=== PATIENT | male | born 1960 | race American Indian/Alaskan Native ===

== ENCOUNTER 2016-12-17 09:50 | Inpatient (IN) | payer OTHER ==
[2016-12-17 10:22] LABS: Basophils % (Auto) 0.6 % (0.0-1.8); Eosinophils % (Auto) 1.2 % (0.0-4.3); Hematocrit 37.9 % (35.5-45.6); Hemoglobin 12.1 gm/dl (11.8-15.2); Mean Corpuscular HGB Conc 32 % (32-34); Mean Corpuscular Hemoglobin 30 pg (28-32); Mean Corpuscular Volume 95 fl (84-94); Platelet Count 203 K/mm3 (140-440); Red Blood Count 3.99 M/mm3 (3.65-5.03); Red Cell Distribution Width 17.8 % (13.2-15.2)
[2016-12-17 10:32] LABS: Calcium 9.1 mg/dL (8.4-10.2); Chloride 105.2 mmol/L (98-107); Partial Thromboplastin Time 23.5 Sec. (24.2-36.6)
[2016-12-17] MEDS ORDERED: NACL 0.9% 500 ML 500 ML IV ONE (11:59)
[2016-12-17] MEDS ORDERED: LOVENOX SUB-Q ONE (11:59)
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
[2016-12-17] MEDS ORDERED: NACL ONE (12:09)
--- NOTE | 2016-12-17 14:24 | Cat Scan Report ---
FINAL REPORT PROCEDURE: CT ANGIO CHEST TECHNIQUE: Computerized axial tomographic angiography of the chest and pulmonary arteries was performed after the IV injection of iodinated nonionic contrast. The image data was postprocessed using maximum intensity projection (MIP) and 2-dimensional multiplanar reformatted (MPR) techniques. The examination is specifically tailored to the evaluation of the pulmonary arteries per clinical request. HISTORY: Short of breath 786.09, chest pain 786.50, dyspnea COMPARISON: No prior studies are available for comparison. FINDINGS: Heart and pericardium: Normal. Thoracic aorta: Normal. Pulmonary vasculature: There is a filling defect along the anterior wall of the right pulmonary artery, compatible with a pulmonary embolus, of uncertain chronicity. This may be a chronic finding. Compare to prior studies. Linear filling defects are seen within right lower lobe branches also, which are of uncertain chronicity. Lymph nodes: No enlarged thoracic lymph nodes. Lungs: Minimal dependent change in the right lung base. Pleural space: No effusion, thickening, or pneumothorax. Musculoskeletal structures: Thoracic spine degenerative disc changes. Upper abdominal structures: See separate CT report. IMPRESSION: Filling defect along the anterior wall of the right pulmonary artery is compatible with a pulmonary embolus, however this may be chronic. Compare to prior studies.
--- NOTE | 2016-12-17 14:36 | Cat Scan Report ---
FINAL REPORT PROCEDURE: CT ABDOMEN PELVIS W CON TECHNIQUE: Computerized axial tomography of the abdomen and pelvis was performed after the IV injection of iodinated nonionic contrast. HISTORY: dyspnea, leg swelling, assess for iliac vein/IVC COMPARISON: No prior studies are available for comparison. FINDINGS: Visualized lower thorax: See separate CT report. Liver: Normal size and attenuation. Spleen: Normal size and attenuation. Gallbladder and biliary system: Normal. Pancreas: Normal. Adrenals: Normal. Kidneys: 7 millimeter low-density lesion in the anterior right kidney is compatible with a cyst. GI tract: No bowel obstruction or inflammation is seen. There is a right lower abdominal ostomy. Lymph nodes and mesentery: Normal. Vasculature: IVC filter is present. Lumen of the inferior vena cava and iliac veins is not diagnostically evaluated. The left common and external iliac veins are increased in caliber compared to the right side. This may be incidental. Cannot fully exclude a thrombus, although this is not diagnostic for thrombus. Bladder: Decompressed. Reproductive organs: Mildly prominent left inguinal lymph nodes. Peritoneum: No free fluid. In the anterior abdomen to the right of midline, there is a small 2 centimeter focus of stranding in the fat, which may be related to scarring. Cannot exclude omental infarct. Musculoskeletal structures: No significant abnormality. Other: Bilateral small fat containing inguinal hernias. IMPRESSION: Nondiagnostic evaluation of the lumen of the inferior vena cava and iliac veins. The left common and external iliac veins are increased in caliber compared to the right side. Although this can be seen with thrombus, this is not a diagnostic evaluation. Correlate with ultrasound findings. Finding was discussed with Dr. Florence by telephone at 1:31 p.m. central standard time on 12/17/2016.
[2016-12-17] MEDS ORDERED: ULTRAM PO PRN (22:04)
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
[2016-12-17] MEDS ORDERED: ZOFRAN IV PRN (22:06)
[2016-12-17] MEDS ORDERED: DULCOLAX PR PRN (22:06)
[2016-12-17] MEDS ORDERED: MILK OF MAGNESIA PO PRN (22:06)
[2016-12-17] MEDS ORDERED: TYLENOL PO PRN (22:06)
[2016-12-17] MEDS ORDERED: D5NS 1,000 ML IV SCH (23:00)
[2016-12-17] MEDS ORDERED: LOVENOX SUB-Q SCH (23:00)
[2016-12-17] MEDS: PERCOCET 5/325 PO PRN (23:27)
[2016-12-18] MEDS: HEPARIN/ 0.45% NACL-25,000 UNIT/500 ML 25,000 UNIT/500 ML BAG IV SCH ×2 (03:39→22:34)
[2016-12-18] MEDS: DILAUDID IV PRN ×2 (04:06→08:15)
[2016-12-18 04:21] LABS: Basophils % (Auto) 1.1 % (0.0-1.8); Eosinophils % (Auto) 3.2 % (0.0-4.3); Hematocrit 39.3 % (35.5-45.6); Hemoglobin 12.9 gm/dl (11.8-15.2); Mean Corpuscular HGB Conc 33 % (32-34); Mean Corpuscular Hemoglobin 31 pg (28-32); Mean Corpuscular Volume 95 fl (84-94); Platelet Count 193 K/mm3 (140-440); Red Blood Count 4.15 M/mm3 (3.65-5.03); Red Cell Distribution Width 17.6 % (13.2-15.2); White Blood Count 4.7 K/mm3 (4.5-11.0)
[2016-12-18 04:34] LABS: INR 1.02 (0.87-1.13)
[2016-12-18 04:39] LABS: Albumin 3.5 g/dL (3.9-5); Albumin/Globulin Ratio 0.8 %; Bilirubin,Total 0.3 mg/dL (0.1-1.2); Calcium 8.9 mg/dL (8.4-10.2); Potassium 4.4 mmol/L (3.6-5.0); Total Protein 8.1 g/dL (6.3-8.2)
--- NOTE | 2016-12-18 07:26 | Vascular Lab Report ---
LOWER EXTREMITY VENOUS DUPLEX: REASON FOR EXAM: History of DVT. COMMENTS ON THE RIGHT: Nonocclusive deep venous thrombus noted in the peroneal, posterior tibial veins and extending into and through the popliteal, femoral and common femoral veins. The remaining veins visualized are freely compressible without evidence of internal echogenicity. Spontaneous and phasic flow is absent proximally. COMMENTS ON THE LEFT: Occlusive deep venous thrombosis noted in the popliteal, femoral common femoral veins. Partially occlusive DVT is noted in the peroneal and posterior tibial veins superficial phlebitis is noted in the greater saphenous. IMPRESSION: Bilateral deep venous thrombosis. Left superficial thrombophlebitis.
[2016-12-18] MEDS: LASIX PO SCH (09:45)
[2016-12-18] MEDS: PEPCID PO SCH ×2 (09:45→21:05)
[2016-12-18] MEDS: NORVASC PO SCH (09:45)
[2016-12-18] MEDS: COREG PO SCH ×3 (09:45→21:06)
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
[2016-12-18] MEDS ORDERED: NACL 0.9% 1000 ML 1,000 ML IV SCH (12:00)
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
[2016-12-18] MEDS ORDERED: COUMADIN PO SCH (17:00)
--- NOTE | 2016-12-18 18:10 | Consultation ---
History of Present Illness - HPI Consult date: 12/18/16 Consult reason: other (left arm swelling) History of present illness: 56 y/o male with c/o left forearm pain and swelling after IV placement...currently states swelling improving since admission Past History Past Medical History: CAD, DVT, heart failure, hypertension, pulmonary embolism , other (reportedly a Lupus anticoagulant hypercoagulable state) Past Surgical History: Other (exploratory laparotomy with colostomy, IVC filter insertion) Social history: other (he recently lost his job and medical insurance due to his prolonged hospitalization) Family history: no significant family history Medications and Allergies Allergies Allergy/AdvReac Type Severity Reaction Status Date / Time lisinopril Allergy Severe Unknown Verified 07/26/15 14:21 Home Medications Medication Instructions Recorded Confirmed Last Taken Type Furosemide [Lasix] 20 mg PO DAILY 10/29/13 10/10/14 10/09/14 History Carvedilol 12.5 mg PO BID 01/17/14 10/10/14 10/09/14 History traMADol [Ultram 50 MG tab] 50 mg PO Q6HR PRN #20 tablet 10/10/14 Unknown Rx oxyCODONE /ACETAMINOPHEN [Percocet 1 tab PO Q6HR PRN #20 tablet 12/02/14 Unknown Rx 5/325 mg] Apixaban [Eliquis] 5 mg PO Q12HR #60 tablet 07/28/15 Unknown Rx amLODIPine [Norvasc] 10 mg PO DAILY #15 tablet 07/28/15 Unknown Rx Active Meds: Active Medications Acetaminophen (Tylenol) 650 mg PO Q4H PRN PRN Reason: Pain MILD(1-3)/Fever >100.5/CARBONE Amlodipine Besylate (Norvasc) 10 mg PO DAILY [facility] Last Admin: 12/18/16 09:45 Dose: 10 mg Bisacodyl (Dulcolax) 10 mg [place] QDAY PRN PRN Reason: Constipation unrelieved by MOM Carvedilol (Coreg) 12.5 mg PO BID [facility] Last Admin: 12/18/16 09:45 Dose: 12.5 mg Famotidine (Pepcid) 20 mg PO BID [facility] Last Admin: 12/18/16 09:45 Dose: 20 mg Furosemide (Lasix) 20 mg PO DAILY [facility] Last Admin: 12/18/16 09:45 Dose: 20 mg Hydromorphone HCl (Dilaudid) 1 mg IV Q3H PRN PRN Reason: Pain , Severe (7-10) Last Admin: 12/18/16 08:15 Dose: 1 mg Heparin Sodium/Sodium Chloride (Heparin/ 0.45% Nacl-25,000 Unit/500 Ml) 25,000 unit in 500 mls @ 30 mls/hr IV TITR [facility]AL[facility]; 1,500 UNITS/HR PRN Reason: Protocol Last Titration: 12/18/16 11:15 Dose: 1,400 units/hr, 28 mls/hr Sodium Chloride (Nacl 0.9% 1000 Ml) 1,000 mls @ 100 mls/hr IV DIRECT [facility] Magnesium Hydroxide (Milk Of Magnesia) 30 ml PO Q4H PRN PRN Reason: Constipation Ondansetron HCl (Zofran) 4 mg IV Q8H PRN PRN Reason: Nausea And Vomiting Oxycodone/Acetaminophen (Percocet 5/325) 1 tab PO Q6H PRN PRN Reason: Pain Last Admin: 12/17/16 23:27 Dose: 1 tab Tramadol HCl (Ultram) 50 mg PO Q6H PRN PRN Reason: Pain Warfarin Sodium (Coumadin Pharmacy To Dose) 1 each PO PKCONSULT [facility] PRN Reason: Protocol Warfarin Sodium (Coumadin) 7.5 mg PO DAILY@1700 [facility] Physical Examination - Physical exam Narrative exam: left upper extremity - moderate swelling proximal to mid-third lt arm, no erythema noted good active RoM at elbow,wrist,and digits, capillary refill brisk Assessment and Plan Assessment - IV infiltration left arm with secondary cellulitis recommendation - observation only at this point
[2016-12-18] MEDS: PERCOCET 5/325 PO PRN (21:05)
[2016-12-19] MEDS: PERCOCET 5/325 PO PRN ×2 (02:45→23:13)
[2016-12-19 04:46] LABS: Hematocrit 36.6 % (35.5-45.6); Mean Corpuscular HGB Conc 33 % (32-34); Mean Corpuscular Hemoglobin 31 pg (28-32); Mean Corpuscular Volume 94 fl (84-94); Platelet Count 216 K/mm3 (140-440); Red Blood Count 3.89 M/mm3 (3.65-5.03); Red Cell Distribution Width 17.4 % (13.2-15.2); White Blood Count 5.6 K/mm3 (4.5-11.0)
[2016-12-19 04:56] LABS: INR 0.98 (0.87-1.13)
[2016-12-19 05:06] LABS: Calcium 8.9 mg/dL (8.4-10.2)
[2016-12-19 05:07] LABS: Chloride 100.5 mmol/L (98-107); Potassium 5.2 mmol/L (3.6-5.0)
[2016-12-19] MEDS: PEPCID PO SCH ×2 (09:14→23:14)
[2016-12-19] MEDS: LASIX PO SCH (10:00)
[2016-12-19] MEDS: NORVASC PO SCH (10:13)
[2016-12-19] MEDS: COREG PO SCH ×3 (10:13→23:14)
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
[2016-12-19] MEDS: DILAUDID IV PRN (16:21)
[2016-12-19] MEDS: HEPARIN/ 0.45% NACL-25,000 UNIT/500 ML 25,000 UNIT/500 ML BAG IV SCH (16:21)
[2016-12-19] MEDS: COUMADIN PO SCH (17:30)
[2016-12-20] MEDS: LASIX PO SCH (09:57)
[2016-12-20] MEDS: PEPCID PO SCH ×2 (09:57→21:21)
[2016-12-20] MEDS: COREG PO SCH ×2 (09:58→21:22)
[2016-12-20] MEDS: HEPARIN/ 0.45% NACL-25,000 UNIT/500 ML 25,000 UNIT/500 ML BAG IV SCH (11:38)
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
[2016-12-20] MEDS: PERCOCET 5/325 PO PRN (14:47)
[2016-12-20] MEDS: COUMADIN PO SCH (18:36)
[2016-12-20] MEDS: DILAUDID IV PRN (22:33)
[2016-12-21 05:25] LABS: Mean Corpuscular HGB Conc 33 % (32-34); Mean Corpuscular Hemoglobin 32 pg (28-32); Mean Corpuscular Volume 95 fl (84-94); Platelet Count 233 K/mm3 (140-440); Red Blood Count 3.49 M/mm3 (3.65-5.03); Red Cell Distribution Width 17.5 % (13.2-15.2); White Blood Count 4.6 K/mm3 (4.5-11.0)
[2016-12-21 05:37] LABS: INR 1.17 (0.87-1.13)
[2016-12-21 05:45] LABS: Calcium 8.3 mg/dL (8.4-10.2); Chloride 103.5 mmol/L (98-107); Potassium 4.4 mmol/L (3.6-5.0)
[2016-12-21] MEDS: HEPARIN/ 0.45% NACL-25,000 UNIT/500 ML 25,000 UNIT/500 ML BAG IV SCH (07:22)
[2016-12-21] MEDS: LASIX PO SCH (11:12)
[2016-12-21] MEDS: PEPCID PO SCH ×2 (11:12→21:55)
[2016-12-21] MEDS: COREG PO SCH ×2 (11:16→22:00)
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
[2016-12-21] MEDS: COUMADIN PO SCH (18:16)
[2016-12-21] MEDS: DILAUDID IV PRN (21:56)
[2016-12-22] MEDS: HEPARIN/ 0.45% NACL-25,000 UNIT/500 ML 25,000 UNIT/500 ML BAG IV SCH ×2 (02:05→18:08)
[2016-12-22 06:24] LABS: INR 1.22 (0.87-1.13)
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
[2016-12-22] MEDS: PEPCID PO SCH ×2 (11:11→21:55)
[2016-12-22] MEDS: LASIX PO SCH (11:12)
[2016-12-22] MEDS: COREG PO SCH ×2 (11:12→21:54)
[2016-12-22] MEDS: COUMADIN PO SCH (17:55)
[2016-12-22] MEDS: DILAUDID IV PRN (18:04)
[2016-12-23] MEDS: DILAUDID IV PRN ×2 (00:09→17:32)
[2016-12-23 05:50] LABS: INR 1.4 (0.87-1.13)
[2016-12-23] MEDS: LASIX PO SCH (09:32)
[2016-12-23] MEDS: PEPCID PO SCH ×2 (09:32→23:51)
[2016-12-23] MEDS: COREG PO SCH (09:32)
[2016-12-23] MEDS: HEPARIN/ 0.45% NACL-25,000 UNIT/500 ML 25,000 UNIT/500 ML BAG IV SCH (09:33)
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
[2016-12-23] MEDS: COUMADIN PO SCH (17:05)
[2016-12-24] MEDS: DILAUDID IV PRN ×4 (00:54→23:00)
[2016-12-24] MEDS: HEPARIN/ 0.45% NACL-25,000 UNIT/500 ML 25,000 UNIT/500 ML BAG IV SCH ×2 (03:01→21:27)
[2016-12-24 06:37] LABS: INR 1.6 (0.87-1.13)
[2016-12-24] MEDS: PEPCID PO SCH ×2 (09:54→21:25)
[2016-12-24] MEDS: LASIX PO SCH (09:55)
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
[2016-12-24] MEDS: COUMADIN PO SCH (17:48)
[2016-12-25 05:40] LABS: INR 1.64 (0.87-1.13)
[2016-12-25 05:47] LABS: Calcium 9.1 mg/dL (8.4-10.2); Chloride 102.1 mmol/L (98-107); Potassium 4.7 mmol/L (3.6-5.0)
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
[2016-12-25] MEDS: PEPCID PO SCH ×2 (11:35→22:41)
[2016-12-25] MEDS: LASIX PO SCH (11:35)
[2016-12-25] MEDS: HEPARIN/ 0.45% NACL-25,000 UNIT/500 ML 25,000 UNIT/500 ML BAG IV SCH (15:12)
[2016-12-25] MEDS: DILAUDID IV PRN ×2 (16:41→22:34)
[2016-12-25] MEDS ORDERED: COUMADIN PO SCH ×2 (17:00)
[2016-12-25] MEDS: COUMADIN PO SCH (17:32)
[2016-12-26 06:15] LABS: Hematocrit 35.4 % (35.5-45.6); Hemoglobin 11.2 gm/dl (11.8-15.2); Mean Corpuscular HGB Conc 32 % (32-34); Mean Corpuscular Hemoglobin 31 pg (28-32); Mean Corpuscular Volume 96 fl (84-94); Platelet Count 242 K/mm3 (140-440); Red Blood Count 3.69 M/mm3 (3.65-5.03); Red Cell Distribution Width 17.5 % (13.2-15.2); White Blood Count 5.7 K/mm3 (4.5-11.0)
[2016-12-26 06:19] LABS: INR 1.66 (0.87-1.13)
[2016-12-26 07:20] LABS: Chloride 102.8 mmol/L (98-107); Potassium 4.6 mmol/L (3.6-5.0)
[2016-12-26] MEDS: HEPARIN/ 0.45% NACL-25,000 UNIT/500 ML 25,000 UNIT/500 ML BAG IV SCH (08:16)
[2016-12-26] MEDS: PEPCID PO SCH (10:37)
[2016-12-26] MEDS: LASIX PO SCH (10:37)
[2016-12-26] MEDS: DILAUDID IV PRN (11:35)
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
[2016-12-26] MEDS ORDERED: LOVENOX SUB-Q SCH ×3 (13:00→14:00)
[2016-12-26 14:49] VITALS: BP 125/77
[2016-12-26] MEDS: PERCOCET 5/325 PO PRN (16:27)
[2016-12-26] MEDS: COUMADIN PO SCH (16:27)
== END 2016-12-26 17:20 | disposition home or self-care (01) | DRG 299 ==
LOC: ED 09:50 → 3A 22:06
PROVIDERS: ADMIT Internal Medicine; ATTEND Internal Medicine
DX: I82.402 Acute embolism and thrombosis of unspecified deep veins of left lower extremity (principal); N17.0 Acute kidney failure with tubular necrosis; D68.62 Lupus anticoagulant syndrome; L03.114 Cellulitis of left upper limb; I13.0 Hypertensive heart and chronic kidney disease with heart failure and stage 1 through stage 4 chronic kidney disease, or unspecified chronic kidney disease; I27.82 Chronic pulmonary embolism; I82.502 Chronic embolism and thrombosis of unspecified deep veins of left lower extremity; Z88.8 Allergy status to other drugs, medicaments and biological substances; I50.9 Heart failure, unspecified; I25.10 Atherosclerotic heart disease of native coronary artery without angina pectoris; I95.9 Hypotension, unspecified; N18.3 Chronic kidney disease, stage 3 (moderate)
CPT/HCPCS: 36415; 71275; 74177; 80048; 80053; 82550; 82962; 85025; 85027; 85379; 85520; 85610; 85730; 93970; 96372; J1170; J1644; J1650; J7040; J7042; Q9967

== ENCOUNTER 2017-08-09 18:39 | Inpatient (IN) | payer SELFPAY ==
[2017-08-09 19:46] LABS: Basophils % (Auto) 0.7 % (0.0-1.8); Eosinophils # (Auto) 0.1 K/mm3 (0.0-0.4); Eosinophils % (Auto) 1.3 % (0.0-4.3); Hematocrit 45.5 % (35.5-45.6); Hemoglobin 14.4 gm/dl (11.8-15.2); Lymphocytes # (Auto) 1.4 K/mm3 (1.2-5.4); Lymphocytes % (Auto) 26.5 % (13.4-35.0); Mean Corpuscular HGB Conc 32 % (32-34); Mean Corpuscular Hemoglobin 31 pg (28-32); Mean Corpuscular Volume 96 fl (84-94); Monocytes # (Auto) 0.5 K/mm3 (0.0-0.8); Monocytes % (Auto) 9.6 % (0.0-7.3); Platelet Count 145 K/mm3 (140-440); Red Blood Count 4.72 M/mm3 (3.65-5.03)
[2017-08-09 19:55] LABS: INR 0.99 (0.87-1.13)
[2017-08-09 19:56] LABS: Partial Thromboplastin Time 23.5 Sec. (24.2-36.6)
[2017-08-09] MEDS ORDERED: ELIQUIS PO ONE (22:47)
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
[2017-08-10] MEDS ORDERED: ZOFRAN IV PRN (05:09)
[2017-08-10] MEDS ORDERED: MORPHINE IV PRN (05:09)
[2017-08-10] MEDS ORDERED: TYLENOL PO PRN (05:09)
[2017-08-10] MEDS ORDERED: SODIUM CHLORIDE FLUSH SYRINGE 10 ML IV PRN (05:09)
--- NOTE | 2017-08-10 05:12 | History and Physical Report ---
History of Present Illness Date of examination: 08/10/17 History of present illness: 56-year-old man with a history of hypertension, CHF, PE, DVT, clotting disorder causing emergency room complaining of pain in his right thigh 5 days. Stated the pain is sharp, worse with activity, constant, intensity 7/10. Is complaining of shortness of breath for over 1 week. The patient stated that he started off on xarelto, then to warfarin secondary to financial constraint. He stopped taking the warfarin 3 weeks ago due to worsening financial problems Review of systems Constitutional: no weight loss, chills Ears, eyes, nose, mouth and throat: no nasal congestion, no nasal discharge, no sinus pressure, no vision change, no red eye. Neck: No neck pain or rigidity. Cardiovascular: no chest pain, palpitations Respiratory: No cough, Gastrointestinal: no abdominal pain, hematochezia Genitourinary : no dysuria, frequency , no hematuria Musculoskeletal: no joint swelling or muscle ache Integumentary: no rash, no pruritis Neurological: no parathesias, no numbness, no focal weakness Endocrine: no cold or heat intolerance, no polyuria or polydipsia Hematologic/Lymphatic: no easy bruising, no easy bleeding, no gland swelling Allergic/Immunologic: no urticaria, no angioedema. PAST MEDICAL HISTORY: hypertension, CHF, PE, DVT, clotting disorder PAST SURGICAL HISTORY: Abdominal surgery, colostomy, IVC filter SOCIAL HISTORY: Alcohol use, no tobacco or drugs FAMILY HISTORY: Hypertension Medications and Allergies Allergies Allergy/AdvReac Type Severity Reaction Status Date / Time lisinopril Allergy Severe Unknown Verified 07/26/15 14:21 Home Medications Medication Instructions Recorded Confirmed Last Taken Type amLODIPine [Norvasc] 10 mg PO DAILY 08/10/17 08/10/17 Unknown History HYDROcodone/APAP 5-325 [[place] 1 each PO Q6H PRN #12 tablet 08/18/17 Unknown Rx 5-325 mg TAB] Warfarin [Coumadin] 10 mg PO DAILY@1700 #30 tablet 08/18/17 Unknown Rx Exam - Physical Exam Narrative exam: Gen. appearance: Patient lying in bed, no apparent distress HEENT: Normocephalic, atraumatic, pupils equally round and reactive to light, extraocular movement intact, and no sclericterus,. No JVD or thyromegaly or nodule,neck supple, no carotid bruit ,mucous membranes moist, no exudate or erythema Heart: S1, S2, regular rate and rhythm Lungs: Clear to auscultation bilaterally, breathing comfortable Abdomen: Positive bowel sounds, nontender, nondistended, no organomegaly Extremity: + edema, + ulcer, no cyanosis, clubbing Skin: No rash, nodules, warm, dry Neuro: Oriented 3, cranial nerves II-12 intact, speech is fluent, motor and sensory intact - Constitutional Vitals: Temp Pulse Resp BP Pulse Ox 98.2 F 73 22 117/78 89 08/09/17 22:51 08/10/17 02:00 08/10/17 02:00 08/10/17 02:00 08/10/17 02:00 Results - Labs CBC & Chem 7: 08/18/17 04:41 08/18/17 04:41 Labs: Abnormal lab results 08/09/17 08/09/17 08/09/17 Range/Units 19:09 19:09 19:09 MCV 96 H (84-94) fl RDW 17.0 H (13.2-15.2) % [place] % (Auto) 9.6 H (0.0-7.3) % APTT 23.5 L (24.2-36.6) Sec. D-Dimer > 35760 H (0-234) ng/mlDDU Sodium 135 L (137-145) mmol/L Creatinine 1.8 H (0.8-1.5) mg/dL - Imaging and Cardiology EKG: image reviewed Chest x-ray: image reviewed Assessment and Plan VQ shows high probability for PE Assessment Acute on chronic pulmonary emboli Right leg pain, rule out DVT Lower extremity ulcer Hypertension CHF, stable Plan Admit to medicine Start eliquis, check to see if patient is able to get discount for medicine If not, restart Coumadin Consult wound care, check Doppler of lower extremity DVT prophylaxis
[2017-08-10 05:32] LABS: Basophils % (Auto) 0.6 % (0.0-1.8); Eosinophils # (Auto) 0.1 K/mm3 (0.0-0.4); Eosinophils % (Auto) 2.1 % (0.0-4.3); Hemoglobin 14.1 gm/dl (11.8-15.2); Lymphocytes # (Auto) 1.6 K/mm3 (1.2-5.4); Lymphocytes % (Auto) 34.6 % (13.4-35.0); Mean Corpuscular HGB Conc 34 % (32-34); Mean Corpuscular Hemoglobin 31 pg (28-32); Mean Corpuscular Volume 93 fl (84-94); Monocytes # (Auto) 0.5 K/mm3 (0.0-0.8); Monocytes % (Auto) 11.2 % (0.0-7.3); Red Cell Distribution Width 17.2 % (13.2-15.2)
[2017-08-10 05:37] LABS: Platelet Count 142 K/mm3 (140-440)
[2017-08-10 05:40] LABS: Calcium 8.5 mg/dL (8.4-10.2); INR 1.05 (0.87-1.13)
[2017-08-10 05:41] LABS: Partial Thromboplastin Time 25.8 Sec. (24.2-36.6)
[2017-08-10] MEDS ORDERED: ELIQUIS PO SCH (10:00)
[2017-08-10] MEDS: SODIUM CHLORIDE FLUSH SYRINGE 10 ML IV SCH ×2 (10:14→23:29)
--- NOTE | 2017-08-10 11:22 | Progress Note ---
Assessment and Plan Assessment and plan: Acute on chronic pulmonary emboli. Dr. Hoskins reports patient with VQ revealing high probability for PE. However, no report available in the chart. We will consult vascular surgery. Patient was given eliquis in ER. We will start heparin IV tomorrow and coumadin Bilateral LE DVT. Cont anticoagulation Hypercoagulable. Patient reports hypercoagulable state but cannot give me the exact determination. We will attempt to obtain old records from [facility]. Hematology consultation. Hypertension. Resume antihypertensive medications. CHF. Stable. History Interval history: No new issues since admission Hospitalist Physical - Constitutional Vitals: Temp Pulse Resp BP Pulse Ox 97.9 F 78 16 128/80 100 08/10/17 09:30 08/10/17 09:30 08/10/17 09:30 08/10/17 09:30 08/10/17 09:30 General appearance: Present: no acute distress, well-nourished - EENT Eyes: Present: PERRL, EOM intact ENT: hearing intact, clear oral mucosa, dentition normal - Neck Neck: Present: supple, normal ROM - Respiratory Respiratory effort: normal Respiratory: bilateral: CTA - Cardiovascular Rhythm: regular Heart Sounds: Present: S1 & S2. Absent: gallop, rub - Extremities Extremities: no ischemia, No edema, Full ROM - Abdominal General gastrointestinal: soft, non-tender, non-distended, normal bowel sounds - Integumentary Integumentary: Present: clear, warm, dry - Neurologic Neurologic: CNII-XII intact, moves all extremities Results - Labs CBC & Chem 7: 08/10/17 05:14 08/10/17 05:14 Labs: Laboratory Last Values WBC 4.7 K/mm3 (4.5-11.0) 08/10/17 05:14 RBC 4.50 M/mm3 (3.65-5.03) 08/10/17 05:14 Hgb 14.1 gm/dl (11.8-15.2) 08/10/17 05:14 Hct 42.0 % (35.5-45.6) 08/10/17 05:14 MCV 93 fl (84-94) 08/10/17 05:14 MCH 31 pg (28-32) 08/10/17 05:14 MCHC 34 % (32-34) 08/10/17 05:14 RDW 17.2 % (13.2-15.2) H 08/10/17 05:14 Plt Count 142 K/mm3 (140-440) 08/10/17 05:14 Lymph % (Auto) 34.6 % (13.4-35.0) 08/10/17 05:14 [place] % (Auto) 11.2 % (0.0-7.3) H 08/10/17 05:14 Eos % (Auto) 2.1 % (0.0-4.3) 08/10/17 05:14 Baso % (Auto) 0.6 % (0.0-1.8) 08/10/17 05:14 Lymph # 1.6 K/mm3 (1.2-5.4) 08/10/17 05:14 [place] # 0.5 K/mm3 (0.0-0.8) 08/10/17 05:14 Eos # 0.1 K/mm3 (0.0-0.4) 08/10/17 05:14 Baso # 0.0 K/mm3 (0.0-0.1) 08/10/17 05:14 Seg Neutrophils % 51.5 % (40.0-70.0) 08/10/17 05:14 Seg Neutrophils # 2.4 K/mm3 (1.8-7.7) 08/10/17 05:14 PT 14.3 Sec. (12.2-14.9) 08/10/17 05:14 INR 1.05 (0.87-1.13) 08/10/17 05:14 APTT 25.8 Sec. (24.2-36.6) 08/10/17 05:14 D-Dimer > 29510 ng/mlDDU (0-234) H 08/09/17 19:09 Sodium 132 mmol/L (137-145) L 08/10/17 05:14 Potassium 5.5 mmol/L (3.6-5.0) H D 08/10/17 05:14 Chloride 102.9 mmol/L (98-107) 08/10/17 05:14 Carbon Dioxide 17 mmol/L (22-30) L 08/10/17 05:14 Anion Gap 18 mmol/L 08/10/17 05:14 BUN 13 mg/dL (9-20) 08/10/17 05:14 Creatinine 1.6 mg/dL (0.8-1.5) H 08/10/17 05:14 Estimated GFR 55 ml/min 08/10/17 05:14 BUN/Creatinine Ratio 8 % 08/10/17 05:14 Glucose 103 mg/dL (75-100) H 08/10/17 05:14 Calcium 8.5 mg/dL (8.4-10.2) 08/10/17 05:14 Troponin T < 0.010 ng/mL (0.00-0.029) 08/10/17 05:14
[2017-08-10 12:32] LABS: Hematocrit 42.9 % (35.5-45.6); Hemoglobin 14.3 gm/dl (11.8-15.2)
[2017-08-10 12:42] LABS: INR 1.04 (0.87-1.13)
[2017-08-10 12:43] LABS: Partial Thromboplastin Time 26.2 Sec. (24.2-36.6)
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
[2017-08-10] MEDS: COUMADIN PO SCH (18:51)
[2017-08-11 08:10] LABS: Basophils % (Auto) 0.7 % (0.0-1.8); Eosinophils # (Auto) 0.1 K/mm3 (0.0-0.4); Eosinophils % (Auto) 2.2 % (0.0-4.3); Hematocrit 42.7 % (35.5-45.6); Hemoglobin 13.9 gm/dl (11.8-15.2); Lymphocytes # (Auto) 1.6 K/mm3 (1.2-5.4); Lymphocytes % (Auto) 31.8 % (13.4-35.0); Mean Corpuscular HGB Conc 33 % (32-34); Mean Corpuscular Hemoglobin 31 pg (28-32); Mean Corpuscular Volume 95 fl (84-94); Monocytes # (Auto) 0.6 K/mm3 (0.0-0.8); Monocytes % (Auto) 12.1 % (0.0-7.3); Platelet Count 151 K/mm3 (140-440); Red Blood Count 4.48 M/mm3 (3.65-5.03); Red Cell Distribution Width 17.2 % (13.2-15.2)
[2017-08-11 08:28] LABS: Calcium 8.7 mg/dL (8.4-10.2)
--- NOTE | 2017-08-11 12:01 | Progress Note ---
Assessment and Plan Assessment and plan: Acute on chronic pulmonary emboli. Bilateral LE DVT. Cont anticoagulation. Patient currently with IV heparin and Coumadin. Hypercoagulable. Patient reports hypercoagulable state but cannot give me the exact determination. We will attempt to obtain old records from [facility]. Hematology consultation. Hypertension. Resume antihypertensive medications. CHF. Stable. Chronic kidney disease III. Patient is at baseline creatinine. History Interval history: No new issues since admission Hospitalist Physical - Constitutional Vitals: Temp Pulse Resp BP Pulse Ox 97.4 F L 64 18 117/82 94 08/11/17 08:17 08/11/17 08:17 08/11/17 08:17 08/11/17 08:17 08/11/17 08:17 General appearance: Present: no acute distress - EENT Eyes: Present: PERRL, EOM intact ENT: hearing intact, clear oral mucosa, dentition normal - Neck Neck: Present: supple, normal ROM - Respiratory Respiratory effort: normal Respiratory: bilateral: CTA - Cardiovascular Rhythm: regular Heart Sounds: Present: S1 & S2. Absent: gallop, rub - Extremities Extremities: no ischemia, No edema, Full ROM - Abdominal General gastrointestinal: soft, non-tender, non-distended, normal bowel sounds - Integumentary Integumentary: Present: clear, warm, dry - Neurologic Neurologic: CNII-XII intact, moves all extremities Results - Labs CBC & Chem 7: 08/11/17 06:11 08/11/17 06:11 Labs: Laboratory Last Values WBC 4.9 K/mm3 (4.5-11.0) 08/11/17 06:11 RBC 4.48 M/mm3 (3.65-5.03) 08/11/17 06:11 Hgb 13.9 gm/dl (11.8-15.2) 08/11/17 06:11 Hct 42.7 % (35.5-45.6) 08/11/17 06:11 MCV 95 fl (84-94) H 08/11/17 06:11 MCH 31 pg (28-32) 08/11/17 06:11 MCHC 33 % (32-34) 08/11/17 06:11 RDW 17.2 % (13.2-15.2) H 08/11/17 06:11 Plt Count 151 K/mm3 (140-440) 08/11/17 06:11 Lymph % (Auto) 31.8 % (13.4-35.0) 08/11/17 06:11 [place] % (Auto) 12.1 % (0.0-7.3) H 08/11/17 06:11 Eos % (Auto) 2.2 % (0.0-4.3) 08/11/17 06:11 Baso % (Auto) 0.7 % (0.0-1.8) 08/11/17 06:11 Lymph # 1.6 K/mm3 (1.2-5.4) 08/11/17 06:11 [place] # 0.6 K/mm3 (0.0-0.8) 08/11/17 06:11 Eos # 0.1 K/mm3 (0.0-0.4) 08/11/17 06:11 Baso # 0.0 K/mm3 (0.0-0.1) 08/11/17 06:11 Seg Neutrophils % 53.2 % (40.0-70.0) 08/11/17 06:11 Seg Neutrophils # 2.6 K/mm3 (1.8-7.7) 08/11/17 06:11 PT 14.1 Sec. (12.2-14.9) 08/10/17 11:55 INR 1.04 (0.87-1.13) 08/10/17 11:55 APTT 26.2 Sec. (24.2-36.6) 08/10/17 11:55 D-Dimer > 12641 ng/mlDDU (0-234) H 08/09/17 19:09 Sodium 135 mmol/L (137-145) L 08/11/17 06:11 Potassium 4.1 mmol/L (3.6-5.0) D 08/11/17 06:11 Chloride 96.0 mmol/L (98-107) L 08/11/17 06:11 Carbon Dioxide 23 mmol/L (22-30) 08/11/17 06:11 Anion Gap 20 mmol/L 08/11/17 06:11 BUN 15 mg/dL (9-20) 08/11/17 06:11 Creatinine 1.6 mg/dL (0.8-1.5) H 08/11/17 06:11 Estimated GFR 55 ml/min 08/11/17 06:11 BUN/Creatinine Ratio 9 % 08/11/17 06:11 Glucose 88 mg/dL (75-100) 08/11/17 06:11 Calcium 8.7 mg/dL (8.4-10.2) 08/11/17 06:11 Troponin T < 0.010 ng/mL (0.00-0.029) 08/10/17 05:14
[2017-08-11 16:29] LABS: Hematocrit 45.5 % (35.5-45.6); Hemoglobin 14.9 gm/dl (11.8-15.2)
[2017-08-11 16:41] LABS: INR 0.95 (0.87-1.13)
[2017-08-11 16:42] LABS: Partial Thromboplastin Time 24.5 Sec. (24.2-36.6)
[2017-08-11] MEDS: SODIUM CHLORIDE FLUSH SYRINGE 10 ML IV SCH (18:30)
[2017-08-11] MEDS: COUMADIN PO SCH (19:01)
[2017-08-11] MEDS: HEPARIN/ 0.45% NACL-25,000 UNIT/500 ML 25,000 UNIT/500 ML BAG IV SCH (19:11)
[2017-08-12] MEDS: SODIUM CHLORIDE FLUSH SYRINGE 10 ML IV SCH ×3 (01:17→22:46)
[2017-08-12] MEDS: HEPARIN/ 0.45% NACL-25,000 UNIT/500 ML 25,000 UNIT/500 ML BAG IV SCH ×3 (02:21→20:53)
[2017-08-12 07:01] LABS: Hematocrit 44.6 % (35.5-45.6); Hemoglobin 14.1 gm/dl (11.8-15.2)
[2017-08-12 07:34] LABS: INR 1.05 (0.87-1.13)
--- NOTE | 2017-08-12 11:48 | Progress Note ---
Assessment and Plan Assessment and plan: Acute on chronic pulmonary emboli. Bilateral LE DVT. Cont anticoagulation. Patient currently with IV heparin and Coumadin. Hypercoagulable. Patient reports hypercoagulable state but cannot give me the exact determination. We will attempt to obtain old records from [facility] [place]. Hematology consultation. Hypertension. Resume antihypertensive medications. CHF. Stable. Chronic kidney disease III. Patient is at baseline creatinine. History Interval history: No new issues since admission Hospitalist Physical - Constitutional Vitals: Temp Pulse Resp BP Pulse Ox 98.1 F 83 18 126/86 94 08/12/17 08:28 08/12/17 10:55 08/12/17 10:55 08/12/17 08:28 08/12/17 10:55 General appearance: Present: no acute distress - EENT Eyes: Present: PERRL, EOM intact ENT: hearing intact, clear oral mucosa, dentition normal - Neck Neck: Present: supple, normal ROM - Respiratory Respiratory effort: normal Respiratory: bilateral: CTA - Cardiovascular Rhythm: regular Heart Sounds: Present: S1 & S2. Absent: gallop, rub - Extremities Extremities: no ischemia, No edema, Full ROM - Abdominal General gastrointestinal: soft, non-tender, non-distended, normal bowel sounds - Integumentary Integumentary: Present: clear, warm, dry - Neurologic Neurologic: CNII-XII intact, moves all extremities Results - Labs CBC & Chem 7: 08/12/17 04:50 08/11/17 06:11 Labs: Laboratory Last Values WBC 4.9 K/mm3 (4.5-11.0) 08/11/17 06:11 RBC 4.48 M/mm3 (3.65-5.03) 08/11/17 06:11 Hgb 14.1 gm/dl (11.8-15.2) 08/12/17 04:50 Hct 44.6 % (35.5-45.6) 08/12/17 04:50 MCV 95 fl (84-94) H 08/11/17 06:11 MCH 31 pg (28-32) 08/11/17 06:11 MCHC 33 % (32-34) 08/11/17 06:11 RDW 17.2 % (13.2-15.2) H 08/11/17 06:11 Plt Count 175 K/mm3 (140-440) 08/12/17 04:50 Lymph % (Auto) 31.8 % (13.4-35.0) 08/11/17 06:11 [place] % (Auto) 12.1 % (0.0-7.3) H 08/11/17 06:11 Eos % (Auto) 2.2 % (0.0-4.3) 08/11/17 06:11 Baso % (Auto) 0.7 % (0.0-1.8) 08/11/17 06:11 Lymph # 1.6 K/mm3 (1.2-5.4) 08/11/17 06:11 [place] # 0.6 K/mm3 (0.0-0.8) 08/11/17 06:11 Eos # 0.1 K/mm3 (0.0-0.4) 08/11/17 06:11 Baso # 0.0 K/mm3 (0.0-0.1) 08/11/17 06:11 Seg Neutrophils % 53.2 % (40.0-70.0) 08/11/17 06:11 Seg Neutrophils # 2.6 K/mm3 (1.8-7.7) 08/11/17 06:11 PT 14.2 Sec. (12.2-14.9) 08/12/17 06:55 INR 1.05 (0.87-1.13) 08/12/17 06:55 APTT 24.5 Sec. (24.2-36.6) 08/11/17 16:04 D-Dimer > 98429 ng/mlDDU (0-234) H 08/09/17 19:09 Heparin Anti-Xa Level 0.97 U.I./ml (0.3-0.7) H 08/12/17 06:55 Sodium 135 mmol/L (137-145) L 08/11/17 06:11 Potassium 4.1 mmol/L (3.6-5.0) D 08/11/17 06:11 Chloride 96.0 mmol/L (98-107) L 08/11/17 06:11 Carbon Dioxide 23 mmol/L (22-30) 08/11/17 06:11 Anion Gap 20 mmol/L 08/11/17 06:11 BUN 15 mg/dL (9-20) 08/11/17 06:11 Creatinine 1.6 mg/dL (0.8-1.5) H 08/11/17 06:11 Estimated GFR 55 ml/min 08/11/17 06:11 BUN/Creatinine Ratio 9 % 08/11/17 06:11 Glucose 88 mg/dL (75-100) 08/11/17 06:11 Calcium 8.7 mg/dL (8.4-10.2) 08/11/17 06:11 Troponin T < 0.010 ng/mL (0.00-0.029) 08/10/17 05:14
[2017-08-12] MEDS: COUMADIN PO SCH (16:35)
--- NOTE | 2017-08-12 17:50 | Consultation ---
History of Present Illness Consult date: 08/12/17 Consult reason: bradycardia History of present illness: The patient is a 56-year-old man with a history of deep vein thrombosis, who was noncompliant with his oral anticoagulation and presents with recurrent venous and pulmonary artery thromboembolism. He is on anticoagulation therapy being managed by internal medicine service. Cardiology consultation was obtained for rhythm abnormality on the equipment monitor phototypesetting. The patient has no chest pain, no shortness of breath, no palpitations, no dizziness. A review of his telemetry strips show a stable sinus rhythm with 2 brief cycles of Wenckebach second-degree AV block. Prior cardiac workup includes an echocardiogram 2 years ago that showed mild left ventricular dysfunction with ejection fraction 40-45%, but more significantly evidence of cor pulmonale with dilated right heart chambers, flattening of the interventricular septum and at least moderate pulmonary hypertension. Past History Past Medical History: DVT, hypertension, pulmonary embolism, other ( hypercoagulable disorder) Past Surgical History: bowel surgery (colostomy), Other (IVC filter placement) Social history: denies: smoking, alcohol abuse, IV drug use Family history: hypertension Medications and Allergies Allergies Allergy/AdvReac Type Severity Reaction Status Date / Time lisinopril Allergy Severe Unknown Verified 07/26/15 14:21 Home Medications Medication Instructions Recorded Confirmed Last Taken Type amLODIPine [Norvasc] 10 mg PO DAILY 08/10/17 08/10/17 Unknown History Active Meds: Active Medications Acetaminophen (Tylenol) 650 mg PO Q4H PRN PRN Reason: Pain MILD(1-3)/Fever >100.5/CARBONE Heparin Sodium/Sodium Chloride (Heparin/ 0.45% Nacl-25,000 Unit/500 Ml) 25,000 unit in 500 mls @ 30 mls/hr IV TITR [facility]ALIO; Protocol Last Titration: 08/12/17 13:20 Dose: 1,300 units/hr, 26 mls/hr Morphine Sulfate (Morphine) 2 mg IV Q4H PRN PRN Reason: Pain, Moderate (4-6) Ondansetron HCl (Zofran) 4 mg IV Q8H PRN PRN Reason: Nausea And Vomiting Sodium Chloride (Sodium Chloride Flush Syringe 10 Ml) 10 ml IV BID ROSALIO Last Admin: 08/12/17 10:32 Dose: 10 ml Sodium Chloride (Sodium Chloride Flush Syringe 10 Ml) 10 ml IV PRN PRN PRN Reason: LINE FLUSH Warfarin Sodium (Coumadin Pharmacy To Dose) 1 each PO PKCONSULT [facility]; Protocol Warfarin Sodium (Coumadin) 7.5 mg PO DAILY@1700 [facility] Last Admin: 08/12/17 16:35 Dose: 7.5 mg Review of Systems Cardiovascular: shortness of breath, no chest pain, no orthopnea, no palpitations, no rapid/irregular heart beat, no edema, no syncope, no lightheadedness Physical Examination Vital Signs Temp Pulse Resp BP Pulse Ox 98.2 F 85 20 142/91 96 08/09/17 18:43 08/09/17 18:43 08/09/17 18:43 08/09/17 18:43 08/09/17 18:43 General appearance: no acute distress HEENT: Positive: PERRL Neck: Positive: neck supple Cardiac: Positive: Reg Rate and Rhythm Lungs: Positive: Decreased Breath Sounds Neuro: Positive: Grossly Intact Abdomen: Positive: Soft Male genitourinary: Positive: deferred Skin: Positive: Clear Extremities: Absent: edema Results 08/12/17 04:50 08/11/17 06:11 Coagulation 08/12/17 Range/Units 06:55 PT 14.2 (12.2-14.9) Sec. INR 1.05 (0.87-1.13) CBC 08/12/17 Range/Units 04:50 Hgb 14.1 (11.8-15.2) gm/dl Hct 44.6 (35.5-45.6) % Plt Count 175 (140-440) K/mm3 EKG interpretations - Telemetry EKG Rhythm: Sinus Rhythm Assessment and Plan - Patient Problems (1) Wenckebach second degree AV block Current Visit: Yes Status: Acute Plan to address problem: Asymptomatic Wenckebach AV block is of minimal clinical significance and requires no further workup. Cardiovascular status is otherwise stable, and will follow on a when necessary basis.
[2017-08-13] MEDS: HEPARIN/ 0.45% NACL-25,000 UNIT/500 ML 25,000 UNIT/500 ML BAG IV SCH (06:16)
[2017-08-13 06:22] LABS: Hematocrit 43.4 % (35.5-45.6); Hemoglobin 13.9 gm/dl (11.8-15.2)
[2017-08-13 06:30] LABS: INR 1.15 (0.87-1.13)
[2017-08-13 06:31] LABS: Heparin anti-factor XA 0.68 U.I./ml (0.3-0.7)
--- NOTE | 2017-08-13 10:02 | Progress Note ---
Assessment and Plan Assessment and plan: Acute on chronic pulmonary emboli. Bilateral LE DVT. Cont anticoagulation. Patient currently with IV heparin and Coumadin. Hypercoagulable. Patient reports hypercoagulable state but cannot give me the exact determination. We will attempt to obtain old records from [facility] [place]. Hematology consultation. Second-degree AV block. Wenckebach. Prior cardiac workup includes an echocardiogram 2 years ago that showed mild left ventricular dysfunction with ejection fraction 40-45%, but more significantly evidence of cor pulmonale with dilated right heart chambers, flattening of the interventricular septum and at least moderate pulmonary hypertension. Cardiology recommends no further workup. Continue telemetry monitoring. Moderate pulmonary hypertension Hypertension. Resume antihypertensive medications. CHF. Stable. Chronic kidney disease III. Patient is at baseline creatinine. History Interval history: No new issues since admission Hospitalist Physical - Constitutional Vitals: Temp Pulse Resp BP Pulse Ox 97.8 F 70 20 112/69 96 08/13/17 07:40 08/13/17 07:40 08/13/17 07:40 08/13/17 07:40 08/13/17 07:40 General appearance: Present: no acute distress - EENT Eyes: Present: PERRL, EOM intact ENT: hearing intact, clear oral mucosa, dentition normal - Neck Neck: Present: supple, normal ROM - Respiratory Respiratory effort: normal Respiratory: bilateral: CTA - Cardiovascular Rhythm: regular Heart Sounds: Present: S1 & S2. Absent: gallop, rub - Extremities Extremities: no ischemia, No edema, Full ROM - Abdominal General gastrointestinal: soft, non-tender, non-distended, normal bowel sounds - Integumentary Integumentary: Present: clear, warm, dry - Neurologic Neurologic: CNII-XII intact, moves all extremities Results - Labs CBC & Chem 7: 08/13/17 05:22 08/11/17 06:11 Labs: Laboratory Last Values WBC 4.9 K/mm3 (4.5-11.0) 08/11/17 06:11 RBC 4.48 M/mm3 (3.65-5.03) 08/11/17 06:11 Hgb 13.9 gm/dl (11.8-15.2) 08/13/17 05:22 Hct 43.4 % (35.5-45.6) 08/13/17 05:22 MCV 95 fl (84-94) H 08/11/17 06:11 MCH 31 pg (28-32) 08/11/17 06:11 MCHC 33 % (32-34) 08/11/17 06:11 RDW 17.2 % (13.2-15.2) H 08/11/17 06:11 Plt Count 168 K/mm3 (140-440) 08/13/17 05:22 Lymph % (Auto) 31.8 % (13.4-35.0) 08/11/17 06:11 [place] % (Auto) 12.1 % (0.0-7.3) H 08/11/17 06:11 Eos % (Auto) 2.2 % (0.0-4.3) 08/11/17 06:11 Baso % (Auto) 0.7 % (0.0-1.8) 08/11/17 06:11 Lymph # 1.6 K/mm3 (1.2-5.4) 08/11/17 06:11 [place] # 0.6 K/mm3 (0.0-0.8) 08/11/17 06:11 Eos # 0.1 K/mm3 (0.0-0.4) 08/11/17 06:11 Baso # 0.0 K/mm3 (0.0-0.1) 08/11/17 06:11 Seg Neutrophils % 53.2 % (40.0-70.0) 08/11/17 06:11 Seg Neutrophils # 2.6 K/mm3 (1.8-7.7) 08/11/17 06:11 PT 15.3 Sec. (12.2-14.9) H 08/13/17 05:25 INR 1.15 (0.87-1.13) H 08/13/17 05:25 APTT 24.5 Sec. (24.2-36.6) 08/11/17 16:04 D-Dimer > 39792 ng/mlDDU (0-234) H 08/09/17 19:09 Heparin Anti-Xa Level 0.68 U.I./ml (0.3-0.7) 08/13/17 05:25 Sodium 135 mmol/L (137-145) L 08/11/17 06:11 Potassium 4.1 mmol/L (3.6-5.0) D 06/02/18 06:11 Chloride 96.0 mmol/L (98-107) L 08/11/17 06:11 Carbon Dioxide 23 mmol/L (22-30) 08/11/17 06:11 Anion Gap 20 mmol/L 08/11/17 06:11 BUN 15 mg/dL (9-20) 08/11/17 06:11 Creatinine 1.6 mg/dL (0.8-1.5) H 08/11/17 06:11 Estimated GFR 55 ml/min 08/11/17 06:11 BUN/Creatinine Ratio 9 % 08/11/17 06:11 Glucose 88 mg/dL (75-100) 08/11/17 06:11 Calcium 8.7 mg/dL (8.4-10.2) 08/11/17 06:11 Troponin T < 0.010 ng/mL (0.00-0.029) 08/10/17 05:14
--- NOTE | 2017-08-13 14:22 | XRay Report ---
FINAL REPORT EXAM: XR CHEST 1V AP HISTORY: SOB TECHNIQUE: upright single view chest PRIORS: None. FINDINGS: Cardiac and mediastinal contours are unremarkable. No focal pulmonary infiltrate is identified. No pleural fluid collection seen. Pulmonary vasculature is unremarkable. IMPRESSION: Negative single-view chest
--- NOTE | 2017-08-13 14:23 | Nuclear Medicine Report ---
FINAL REPORT EXAM: NM LUNG SCAN PERF/VENT HISTORY: SOB, elevated dimer TECHNIQUE: The nuclear medicine ventilation perfusion study was performed. The patient was given 15 mCi of Xe 133 gas for the ventilation study and 5.0 mCi of technetium 99m MAA for the perfusion study. Images were acquired in the standard projections. Correlation is made with chest radiograph performed on the same date. PRIORS: None. FINDINGS: There are 2 left large segmental perfusion defects, in the inferior right upper lobe and anterior right upper lobe and a small subsegmental perfusion defect in the superior right middle lobe. The ventilation study appears normal. There is no corresponding chest x-ray abnormality. IMPRESSION: High probability for multifocal PE in the right lung
[2017-08-13] MEDS: COUMADIN PO SCH (17:04)
[2017-08-13] MEDS: SODIUM CHLORIDE FLUSH SYRINGE 10 ML IV SCH ×2 (17:05→21:40)
--- NOTE | 2017-08-13 20:42 | Consultation ---
History of Present Illness - Reason for Consult Consult date: 08/13/17 hypercoagulable. Requesting physician: PASQUALE ESTRADA - History of Present Illness thank you for this consult, patient resting in bed, records reviewed. patient with hx of Pulm embolis/DVT, presented with sxs consisted with thrombotic event.He is said to have been non compliant with his treatment, for one reason , or the other, ie monetary issues. A well planned out patient oral therapy will be needed, upon d/c.will do work up. Past History Past Medical History: DVT, hypertension, pulmonary embolism, other ( hypercoagulable disorder) Past Surgical History: bowel surgery (colostomy), Other (IVC filter placement) Social history: denies: smoking, alcohol abuse, IV drug use Family history: hypertension Medications and Allergies Allergies Allergy/AdvReac Type Severity Reaction Status Date / Time lisinopril Allergy Severe Unknown Verified 07/26/15 14:21 Home Medications Medication Instructions Recorded Confirmed Last Taken Type amLODIPine [Norvasc] 10 mg PO DAILY 08/10/17 08/10/17 Unknown History Active Meds: Active Medications Acetaminophen (Tylenol) 650 mg PO Q4H PRN PRN Reason: Pain MILD(1-3)/Fever >100.5/CARBONE Heparin Sodium/Sodium Chloride (Heparin/ 0.45% Nacl-25,000 Unit/500 Ml) 25,000 unit in 500 mls @ 30 mls/hr IV TITR [facility]; Protocol Last Admin: 08/13/17 06:16 Dose: 1,300 units/hr, 26 mls/hr Morphine Sulfate (Morphine) 2 mg IV Q4H PRN PRN Reason: Pain, Moderate (4-6) Ondansetron HCl (Zofran) 4 mg IV Q8H PRN PRN Reason: Nausea And Vomiting Sodium Chloride (Sodium Chloride Flush Syringe 10 Ml) 10 ml IV BID [facility] Last Admin: 08/13/17 17:05 Dose: 10 ml Sodium Chloride (Sodium Chloride Flush Syringe 10 Ml) 10 ml IV PRN PRN PRN Reason: LINE FLUSH Warfarin Sodium (Coumadin Pharmacy To Dose) 1 each PO PKCONSULT [facility]; Protocol Warfarin Sodium (Coumadin) 10 mg PO DAILY@1700 [facility] Last Admin: 08/13/17 17:04 Dose: 10 mg Review of Systems Cardiovascular: shortness of breath Respiratory: shortness of breath Exam - Constitutional Vitals: Temp Pulse Resp BP Pulse Ox 97.9 F 73 18 113/80 99 08/13/17 15:40 08/13/17 15:40 08/13/17 15:40 08/13/17 15:40 08/13/17 15:40 General appearance: Present: mild distress, well-nourished - EENT Eyes: Present: PERRL ENT: hearing intact, clear oral mucosa - Neck Neck: Present: supple, normal ROM - Respiratory Respiratory effort: normal Respiratory: bilateral: CTA - Cardiovascular Heart Sounds: Present: S1 & S2. Absent: rub, click - Extremities Extremities: pulses symmetrical, No edema Peripheral Pulses: within normal limits - Abdominal General gastrointestinal: Present: soft, non-tender, non-distended, normal bowel sounds Male genitourinary: Present: deferred - Rectal Rectal Exam: deferred - Integumentary Integumentary: Present: clear, warm, dry - Musculoskeletal Musculoskeletal: gait normal, strength equal bilaterally - Psychiatric Psychiatric: appropriate mood/affect, intact judgment & insight - Neurologic Neurologic: CNII-XII intact, moves all extremities Results - Labs CBC & Chem 7: 08/13/17 05:22 08/11/17 06:11 Labs: Abnormal lab results 08/13/17 Range/Units 05:25 PT 15.3 H (12.2-14.9) Sec. INR 1.15 H (0.87-1.13) Assessment and Plan - Patient Problems (1) Pulmonary emboli Current Visit: Yes Status: Acute Qualifiers: Pulmonary embolism type: other Chronicity: acute Acute cor pulmonale presence: without acute cor pulmonale Qualified Code(s): I26.99 - Other pulmonary embolism without acute cor pulmonale Plan to address problem: See notes above. (2) Shortness of breath Current Visit: Yes Status: Acute Plan to address problem: oxygen.
[2017-08-14] MEDS: HEPARIN/ 0.45% NACL-25,000 UNIT/500 ML 25,000 UNIT/500 ML BAG IV SCH (02:38)
[2017-08-14 06:03] LABS: Hematocrit 42.8 % (35.5-45.6); Hemoglobin 14.2 gm/dl (11.8-15.2)
[2017-08-14 06:14] LABS: INR 1.26 (0.87-1.13)
[2017-08-14 06:15] LABS: Heparin anti-factor XA 0.77 U.I./ml (0.3-0.7)
--- NOTE | 2017-08-14 11:34 | Progress Note ---
Assessment and Plan Assessment and plan: Acute on chronic pulmonary emboli. INR 1.36 To discharge when INR>2 Bilateral LE DVT. Cont anticoagulation. Patient currently with IV heparin and Coumadin. Hypercoagulable state. has had multiple DVT, pulm embolism Second-degree AV block. Wenckebach. Prior cardiac workup includes an echocardiogram 2 years ago that showed mild left ventricular dysfunction with ejection fraction 40-45%, but more significantly evidence of cor pulmonale with dilated right heart chambers, flattening of the interventricular septum and at least moderate pulmonary hypertension. Cardiology recommends no further workup. Continue telemetry monitoring. Moderate pulmonary hypertension Hypertension. Resume antihypertensive medications. CHF. Stable. Chronic kidney disease III. Patient is at baseline creatinine. History Interval history: No chest pain No SOB currently Hospitalist Physical - Physical exam Narrative exam: General: Not in acute distress, Obese, HEENT:Normocephalic, atraumatic Neck:supple,no JVD Lungs: Clear to auscultation bilaterally, no crackles, no wheeze Heart:S1 and S2 regular, no murmurs, rubs or gallop Abd: soft, non tender, non distended, normal bowel sounds Ext: No edema, no clubbing, no cyanosis Neuro: AAO x 3, moves all extremities. - Constitutional Vitals: Temp Pulse Resp BP Pulse Ox 97.9 F 73 20 117/73 96 08/14/17 07:38 08/14/17 07:38 08/14/17 07:38 08/14/17 07:38 08/14/17 07:38 Results - Labs CBC & Chem 7: 08/15/17 04:59 08/11/17 06:11 Labs: Laboratory Last Values WBC 4.9 K/mm3 (4.5-11.0) 08/11/17 06:11 RBC 4.48 M/mm3 (3.65-5.03) 08/11/17 06:11 Hgb 14.2 gm/dl (11.8-15.2) 08/14/17 04:56 Hct 42.8 % (35.5-45.6) 08/14/17 04:56 MCV 95 fl (84-94) H 08/11/17 06:11 MCH 31 pg (28-32) 08/11/17 06:11 MCHC 33 % (32-34) 08/11/17 06:11 RDW 17.2 % (13.2-15.2) H 08/11/17 06:11 Plt Count 174 K/mm3 (140-440) 08/14/17 04:56 Lymph % (Auto) 31.8 % (13.4-35.0) 08/11/17 06:11 [place] % (Auto) 12.1 % (0.0-7.3) H 08/11/17 06:11 Eos % (Auto) 2.2 % (0.0-4.3) 08/11/17 06:11 Baso % (Auto) 0.7 % (0.0-1.8) 08/11/17 06:11 Lymph # 1.6 K/mm3 (1.2-5.4) 08/11/17 06:11 [place] # 0.6 K/mm3 (0.0-0.8) 08/11/17 06:11 Eos # 0.1 K/mm3 (0.0-0.4) 08/11/17 06:11 Baso # 0.0 K/mm3 (0.0-0.1) 08/11/17 06:11 Seg Neutrophils % 53.2 % (40.0-70.0) 08/11/17 06:11 Seg Neutrophils # 2.6 K/mm3 (1.8-7.7) 08/11/17 06:11 PT 16.5 Sec. (12.2-14.9) H 08/14/17 04:56 INR 1.26 (0.87-1.13) H 08/14/17 04:56 APTT 24.5 Sec. (24.2-36.6) 08/11/17 16:04 D-Dimer > 83324 ng/mlDDU (0-234) H 08/09/17 19:09 Heparin Anti-Xa Level 0.77 U.I./ml (0.3-0.7) H 08/14/17 04:56 Sodium 135 mmol/L (137-145) L 08/11/17 06:11 Potassium 4.1 mmol/L (3.6-5.0) D 08/11/17 06:11 Chloride 96.0 mmol/L (98-107) L 08/11/17 06:11 Carbon Dioxide 23 mmol/L (22-30) 08/11/17 06:11 Anion Gap 20 mmol/L 08/11/17 06:11 BUN 15 mg/dL (9-20) 08/11/17 06:11 Creatinine 1.6 mg/dL (0.8-1.5) H 08/11/17 06:11 Estimated GFR 55 ml/min 08/11/17 06:11 BUN/Creatinine Ratio 9 % 08/11/17 06:11 Glucose 88 mg/dL (75-100) 08/11/17 06:11 Calcium 8.7 mg/dL (8.4-10.2) 08/11/17 06:11 Troponin T < 0.010 ng/mL (0.00-0.029) 08/10/17 05:14
[2017-08-14] MEDS: COUMADIN PO SCH (17:12)
--- NOTE | 2017-08-14 17:54 | Vascular Lab Report ---
LOWER EXTREMITY VENOUS DUPLEX: REASON FOR EXAM: Pain and swelling of the lower extremities. COMMENTS ON THE RIGHT: Indeterminate thrombus is seen throughout the deep system of the right lower extremity. The extent of the thrombosis from the iliac vein all way down to the tibial veins. The presence of acute thrombus cannot be ruled out. The remaining veins visualized are freely compressible without evidence of internal echogenicity. Spontaneous and phasic flow is absent proximally. COMMENTS ON THE LEFT: Extensive indeterminate age thrombus is seen throughout the deep system of the left lower extremity. As on the right, acute thrombus cannot be ruled out. The remaining veins visualized are freely compressible without evidence of internal echogenicity. Spontaneous and phasic flow is absent proximally. IMPRESSION: Extensive indeterminate age thrombus in the deep venous system of both lower extremities. The presence of acute thrombus mixed in with this thrombus cannot be ruled out.
[2017-08-14] MEDS: SODIUM CHLORIDE FLUSH SYRINGE 10 ML IV SCH ×2 (18:47→21:58)
--- NOTE | 2017-08-14 22:44 | Progress Note ---
Assessment and Plan - Patient Problems (1) Pulmonary emboli Current Visit: Yes Status: Acute Qualifiers: Pulmonary embolism type: other Chronicity: acute Acute cor pulmonale presence: without acute cor pulmonale Qualified Code(s): I26.99 - Other pulmonary embolism without acute cor pulmonale Plan to address problem: See notes above. (2) Shortness of breath Current Visit: Yes Status: Acute Plan to address problem: oxygen. Subjective Date of service: 08/14/17 Interval history: Patient resting in bed, labs reviewed, no new issues at this timer.W/u labs still pending results. Objective - Constitutional Vitals: Vital Signs - 12hr 08/14/17 08/14/17 08/14/17 11:10 15:31 20:46 Temperature 98.2 F 97.9 F Pulse Rate 74 74 74 Respiratory 20 18 20 Rate Blood Pressure 124/95 120/86 115/85 O2 Sat by Pulse 94 97 98 Oximetry General appearance: Present: no acute distress, well-nourished - EENT Eyes: PERRL, EOM intact ENT: hearing intact, clear oral mucosa Ears: bilateral: normal - Neck Neck: supple, normal ROM - Respiratory Respiratory effort: normal Respiratory: bilateral: CTA - Breasts Breasts: deferred - Cardiovascular Rhythm: regular Heart Sounds: Present: S1 & S2. Absent: gallop, rub Extremities: pulses intact, No edema, normal color, Full ROM - Gastrointestinal General gastrointestinal: Present: soft, non-tender, non-distended, normal bowel sounds Rectal Exam: deferred - Genitourinary Male genitourinary: deferred - Integumentary Integumentary: clear, warm, dry - Musculoskeletal Musculoskeletal: 1, strength equal bilaterally - Neurologic Neurologic: moves all extremities - Psychiatric Psychiatric: memory intact, appropriate mood/affect, intact judgment & insight - Labs CBC & Chem 7: 08/14/17 04:56 08/11/17 06:11 Labs: Abnormal lab results 08/14/17 08/14/17 Range/Units 04:56 11:50 PT 16.5 H (12.2-14.9) Sec. INR 1.26 H (0.87-1.13) Heparin Anti-Xa Level 0.77 H 0.74 H (0.3-0.7) U.I./ml
[2017-08-15] MEDS: HEPARIN/ 0.45% NACL-25,000 UNIT/500 ML 25,000 UNIT/500 ML BAG IV SCH (03:00)
[2017-08-15 06:09] LABS: Hematocrit 44.3 % (35.5-45.6); Hemoglobin 14.7 gm/dl (11.8-15.2)
[2017-08-15 06:16] LABS: INR 1.36 (0.87-1.13)
--- NOTE | 2017-08-15 09:31 | Progress Note ---
Assessment and Plan Assessment and plan: Acute on chronic pulmonary emboli. INR 1.36 today To discharge when INR>2 Bilateral LE DVT. Cont anticoagulation. Patient currently with IV heparin and Coumadin. Hypercoagulable state. has had multiple DVT, pulm embolism Second-degree AV block. Wenckebach. Prior cardiac workup includes an echocardiogram 2 years ago that showed mild left ventricular dysfunction with ejection fraction 40-45%, but more significantly evidence of cor pulmonale with dilated right heart chambers, flattening of the interventricular septum and at least moderate pulmonary hypertension. Cardiology recommends no further workup. Continue telemetry monitoring. Moderate pulmonary hypertension Hypertension. Resume antihypertensive medications. CHF. Stable. Chronic kidney disease III. Patient is at baseline creatinine. To discharge home when INR>2 History Interval history: No chest pain No SOB currently Hospitalist Physical - Physical exam Narrative exam: General: Not in acute distress, Obese, HEENT:Normocephalic, atraumatic Neck:supple,no JVD Lungs: Clear to auscultation bilaterally, no crackles, no wheeze Heart:S1 and S2 regular, no murmurs, rubs or gallop Abd: soft, non tender, non distended, normal bowel sounds Ext: No edema, no clubbing, no cyanosis Neuro: AAO x 3, moves all extremities. - Constitutional Vitals: Temp Pulse Resp BP Pulse Ox 97.4 F L 59 L 18 100/50 97 08/15/17 08:00 08/15/17 09:18 08/15/17 08:00 08/15/17 08:00 08/15/17 08:00 General appearance: Present: obese Results - Labs CBC & Chem 7: 08/15/17 04:59 08/11/17 06:11 Labs: Laboratory Last Values WBC 4.9 K/mm3 (4.5-11.0) 08/11/17 06:11 RBC 4.48 M/mm3 (3.65-5.03) 08/11/17 06:11 Hgb 14.7 gm/dl (11.8-15.2) 08/15/17 04:59 Hct 44.3 % (35.5-45.6) 08/15/17 04:59 MCV 95 fl (84-94) H 08/11/17 06:11 MCH 31 pg (28-32) 08/11/17 06:11 MCHC 33 % (32-34) 08/11/17 06:11 RDW 17.2 % (13.2-15.2) H 08/11/17 06:11 Plt Count 196 K/mm3 (140-440) 08/15/17 04:59 Lymph % (Auto) 31.8 % (13.4-35.0) 08/11/17 06:11 [place] % (Auto) 12.1 % (0.0-7.3) H 08/11/17 06:11 Eos % (Auto) 2.2 % (0.0-4.3) 08/11/17 06:11 Baso % (Auto) 0.7 % (0.0-1.8) 08/11/17 06:11 Lymph # 1.6 K/mm3 (1.2-5.4) 08/11/17 06:11 [place] # 0.6 K/mm3 (0.0-0.8) 08/11/17 06:11 Eos # 0.1 K/mm3 (0.0-0.4) 08/11/17 06:11 Baso # 0.0 K/mm3 (0.0-0.1) 08/11/17 06:11 Seg Neutrophils % 53.2 % (40.0-70.0) 08/11/17 06:11 Seg Neutrophils # 2.6 K/mm3 (1.8-7.7) 08/11/17 06:11 PT 17.6 Sec. (12.2-14.9) H 08/15/17 04:59 INR 1.36 (0.87-1.13) H 08/15/17 04:59 APTT 24.5 Sec. (24.2-36.6) 08/11/17 16:04 D-Dimer > 13675 ng/mlDDU (0-234) H 08/09/17 19:09 Heparin Anti-Xa Level 0.54 U.I./ml (0.3-0.7) 08/14/17 19:30 Sodium 135 mmol/L (137-145) L 08/11/17 06:11 Potassium 4.1 mmol/L (3.6-5.0) D 08/11/17 06:11 Chloride 96.0 mmol/L (98-107) L 08/11/17 06:11 Carbon Dioxide 23 mmol/L (22-30) 08/11/17 06:11 Anion Gap 20 mmol/L 08/11/17 06:11 BUN 15 mg/dL (9-20) 08/11/17 06:11 Creatinine 1.6 mg/dL (0.8-1.5) H 08/11/17 06:11 Estimated GFR 55 ml/min 08/11/17 06:11 BUN/Creatinine Ratio 9 % 08/11/17 06:11 Glucose 88 mg/dL (75-100) 08/11/17 06:11 Calcium 8.7 mg/dL (8.4-10.2) 08/11/17 06:11 Troponin T < 0.010 ng/mL (0.00-0.029) 08/10/17 05:14
--- NOTE | 2017-08-15 12:04 | Progress Note ---
Assessment and Plan LE DVT -on IV heparin bridge with warfarin for oral anticoagulation Sleep apnea Wenckebach second-degree AV block seen on telemetry strips patient remains asymptomatic Echocardiogram 07/2015: showed mild left ventricular dysfunction with ejection fraction 40-45%, but more significantly evidence of cor pulmonale with dilated right heart chambers, flattening of the interventricular septum and at least moderate pulmonary hypertension. Subjective Date of service: 08/15/17 Interval history: Patient has no cardiac complaints. Telemetry strips shows brief cycles of Wenckebach second-degree AV block. Patient remained asymptomatic. Objective Vital Signs Temp Pulse Resp BP BP Pulse Ox 08/15/17 09:18 59 L 08/15/17 08:00 97.4 F L 64 18 100/50 97 08/15/17 05:20 97.6 F 70 20 113/80 96 08/15/17 00:21 98.1 F 69 20 120/77 94 08/14/17 20:46 97.9 F 74 20 115/85 98 08/14/17 15:31 74 18 120/86 97 - Physical Examination General: No Apparent Distress HEENT: Positive: PERRL Cardiac: Positive: Reg Rate and Rhythm Neuro: Positive: Grossly Intact Extremities: Absent: edema - Labs and Meds Coagulation 08/15/17 Range/Units 04:59 PT 17.6 H (12.2-14.9) Sec. INR 1.36 H (0.87-1.13) CBC 08/15/17 Range/Units 04:59 Hgb 14.7 (11.8-15.2) gm/dl Hct 44.3 (35.5-45.6) % Plt Count 196 (140-440) K/mm3
[2017-08-15] MEDS: COUMADIN PO SCH (17:25)
[2017-08-15] MEDS: SODIUM CHLORIDE FLUSH SYRINGE 10 ML IV SCH (17:25)
--- NOTE | 2017-08-15 22:17 | Progress Note ---
Assessment and Plan - Patient Problems (1) Pulmonary emboli Current Visit: Yes Status: Acute Qualifiers: Pulmonary embolism type: other Chronicity: acute Acute cor pulmonale presence: without acute cor pulmonale Qualified Code(s): I26.99 - Other pulmonary embolism without acute cor pulmonale Plan to address problem: See notes above. (2) Shortness of breath Current Visit: Yes Status: Acute Plan to address problem: oxygen. Subjective Date of service: 08/15/17 Interval history: Patient resting in bed, labs reviewed, no new issues at this timer.W/u labs still pending results. Patient in the rest room, record reviewed, INR still low at 1.3, on coumadin. Objective - Constitutional Vitals: Vital Signs - 12hr 08/15/17 08/15/17 16:00 17:29 Temperature 97.6 F Pulse Rate 82 Respiratory 18 Rate Blood Pressure 123/86 O2 Sat by Pulse 96 Oximetry General appearance: Present: no acute distress, well-nourished - EENT Eyes: PERRL, EOM intact ENT: hearing intact, clear oral mucosa Ears: bilateral: normal - Neck Neck: supple, normal ROM - Respiratory Respiratory effort: normal Respiratory: bilateral: CTA - Breasts Breasts: normal - Cardiovascular Rhythm: regular Heart Sounds: Present: S1 & S2. Absent: gallop, rub Extremities: pulses intact, No edema, normal color, Full ROM - Gastrointestinal General gastrointestinal: Present: soft, non-tender, non-distended, normal bowel sounds - Genitourinary Male genitourinary: normal - Integumentary Integumentary: clear, warm, dry - Musculoskeletal Musculoskeletal: 1, strength equal bilaterally - Neurologic Neurologic: moves all extremities - Psychiatric Psychiatric: memory intact, appropriate mood/affect, intact judgment & insight - Labs CBC & Chem 7: 08/15/17 04:59 08/11/17 06:11 Labs: Abnormal lab results 08/15/17 Range/Units 04:59 PT 17.6 H (12.2-14.9) Sec. INR 1.36 H (0.87-1.13)
[2017-08-16] MEDS: HEPARIN/ 0.45% NACL-25,000 UNIT/500 ML 25,000 UNIT/500 ML BAG IV SCH (00:53)
[2017-08-16] MEDS: SODIUM CHLORIDE FLUSH SYRINGE 10 ML IV SCH ×3 (00:55→23:23)
[2017-08-16 06:32] LABS: Hematocrit 45.9 % (35.5-45.6); Hemoglobin 14.6 gm/dl (11.8-15.2)
[2017-08-16 06:42] LABS: INR 1.65 (0.87-1.13)
--- NOTE | 2017-08-16 09:30 | Progress Note ---
Assessment and Plan Assessment and plan: Acute on chronic pulmonary emboli. INR 1.65 today To discharge when INR>2 Bilateral LE DVT. Cont anticoagulation. Patient currently with IV heparin and Coumadin. Hypercoagulable state. has had multiple DVT, pulm embolism Second-degree AV block. Wenckebach. Patient re-evaluated by cardiology and scheduled for permanent pacemagker implantation today Moderate pulmonary hypertension Hypertension. Resume antihypertensive medications. CHF. Stable. Chronic kidney disease III. Patient is at baseline creatinine. To discharge home when INR>2 History Interval history: No chest pain No SOB currently Hospitalist Physical - Physical exam Narrative exam: General: Not in acute distress, Obese, HEENT:Normocephalic, atraumatic Neck:supple,no JVD Lungs: Clear to auscultation bilaterally, no crackles, no wheeze Heart:S1 and S2 regular, no murmurs, rubs or gallop Abd: soft, non tender, non distended, normal bowel sounds Ext: No edema, no clubbing, no cyanosis Neuro: AAO x 3, moves all extremities. - Constitutional Vitals: Temp Pulse Resp BP Pulse Ox 98.0 F 69 18 112/69 95 08/16/17 07:37 08/16/17 07:37 08/16/17 07:37 08/16/17 07:37 08/16/17 07:37 General appearance: Present: no acute distress, well-nourished Results - Labs CBC & Chem 7: 08/16/17 05:38 08/16/17 11:16 Labs: Laboratory Last Values WBC 4.9 K/mm3 (4.5-11.0) 08/11/17 06:11 RBC 4.48 M/mm3 (3.65-5.03) 08/11/17 06:11 Hgb 14.6 gm/dl (11.8-15.2) 08/16/17 05:38 Hct 45.9 % (35.5-45.6) H 08/16/17 05:38 MCV 95 fl (84-94) H 08/11/17 06:11 MCH 31 pg (28-32) 08/11/17 06:11 MCHC 33 % (32-34) 08/11/17 06:11 RDW 17.2 % (13.2-15.2) H 08/11/17 06:11 Plt Count 207 K/mm3 (140-440) 08/16/17 05:38 Lymph % (Auto) 31.8 % (13.4-35.0) 08/11/17 06:11 [place] % (Auto) 12.1 % (0.0-7.3) H 08/11/17 06:11 Eos % (Auto) 2.2 % (0.0-4.3) 08/11/17 06:11 Baso % (Auto) 0.7 % (0.0-1.8) 08/11/17 06:11 Lymph # 1.6 K/mm3 (1.2-5.4) 08/11/17 06:11 [place] # 0.6 K/mm3 (0.0-0.8) 08/11/17 06:11 Eos # 0.1 K/mm3 (0.0-0.4) 08/11/17 06:11 Baso # 0.0 K/mm3 (0.0-0.1) 08/11/17 06:11 Seg Neutrophils % 53.2 % (40.0-70.0) 08/11/17 06:11 Seg Neutrophils # 2.6 K/mm3 (1.8-7.7) 08/11/17 06:11 PT 20.5 Sec. (12.2-14.9) H 08/16/17 05:42 INR 1.65 (0.87-1.13) H 08/16/17 05:42 APTT 24.5 Sec. (24.2-36.6) 08/11/17 16:04 D-Dimer > 99233 ng/mlDDU (0-234) H 08/09/17 19:09 APC Resistance 4.1 ratio (>=2.1) 08/13/17 22:00 Heparin Anti-Xa Level 0.37 U.I./ml (0.3-0.7) 08/15/17 19:36 Sodium 135 mmol/L (137-145) L 08/11/17 06:11 Potassium 4.1 mmol/L (3.6-5.0) D 08/11/17 06:11 Chloride 96.0 mmol/L (98-107) L 08/11/17 06:11 Carbon Dioxide 23 mmol/L (22-30) 08/11/17 06:11 Anion Gap 20 mmol/L 08/11/17 06:11 BUN 15 mg/dL (9-20) 08/11/17 06:11 Creatinine 1.6 mg/dL (0.8-1.5) H 08/11/17 06:11 Estimated GFR 55 ml/min 08/11/17 06:11 BUN/Creatinine Ratio 9 % 08/11/17 06:11 Glucose 88 mg/dL (75-100) 08/11/17 06:11 Calcium 8.7 mg/dL (8.4-10.2) 08/11/17 06:11 Troponin T < 0.010 ng/mL (0.00-0.029) 08/10/17 05:14
[2017-08-16 11:52] LABS: Calcium 8.9 mg/dL (8.4-10.2)
[2017-08-16] MEDS ORDERED: MARCAINE 0.5% 60 ML INFILTRATI ONE (12:18)
[2017-08-16] MEDS ORDERED: NACL 0.9% 500 ML IR ONE (12:18)
[2017-08-16] MEDS ORDERED: XYLOCAINE 1% 20 mL ONE (12:18)
[2017-08-16] MEDS ORDERED: ANCEF/STERILE WATER 2 GM/20 ML 2 GM/20 ML SYRINGE IV ONE (12:18)
[2017-08-16] MEDS ORDERED: VERSED ONE (12:19)
[2017-08-16] MEDS ORDERED: NACL 0.9% 1,000 ML, VANCOMYCIN VIAL 1,000 MG IR ONE (12:30)
[2017-08-16] MEDS ORDERED: NACL 0.9% 1000 ML 1,000 ML ONE (12:56)
[2017-08-16] MEDS: SUBLIMAZE ONE ×2 (13:30→13:34)
[2017-08-16] MEDS: VERSED ONE ×3 (13:30→13:46)
[2017-08-16] MEDS ORDERED: SUBLIMAZE ONE (13:33)
[2017-08-16] MEDS ORDERED: VANCOMYCIN VIAL 1,000 MG in NACL 0.9% 1,000 ML IRRIGATION ONE (14:09)
--- NOTE | 2017-08-16 14:46 | Event Note ---
Date: 08/16/17 Patient underwent dual chamber PPM implant due to prior episodes of recurrent syncope and intermittent second degree type I and type II AV block (I had personally reviewed strips documenting type I and type II AV block). No apparent complications. Recommend: 1. Continue warfarin 2. If necessary, IV heparin can be restarted in 24 hours if no pocket hematoma - Please do not bolus heparin or treat with lovenox. 3. Routine post PPM orders. 4. PPM interrogation tomorrow morning 5. Prescribe short course of pain medication at time of discharge. Kali Herrera MD
[2017-08-16] MEDS ORDERED: ANCEF/NS 1 GM/50 ML 1 GM/50 ML BAG IV SCH (15:00)
[2017-08-16 15:57] LABS: Protein S, Free 87 % normal (57-171); Protein S, Total 90 % (70-140)
[2017-08-16] MEDS: COUMADIN PO SCH (17:05)
--- NOTE | 2017-08-16 17:31 | XRay Report ---
FINAL REPORT PROCEDURE: XR CHEST 1V AP TECHNIQUE: Chest radiograph anteroposterior view. CPT 07875 HISTORY: Pacemaker Postop COMPARISON: 08/09/2017 FINDINGS: Heart: Normal. Mediastinum/Vessels: Normal. Lungs/Pleural space: No infiltrate, effusion, or pneumothorax. Bony thorax: No acute osseous abnormality. Life support devices: There is a dual lead left-sided pacemaker. IMPRESSION: No radiographic evidence of acute cardiopulmonary abnormality.
[2017-08-16] MEDS: NORCO 5/325 PO PRN (18:33)
[2017-08-16] MEDS: ceFAZolin 1 GM in NACL 0.9% 20 ML IV SCH (22:10)
--- NOTE | 2017-08-16 22:35 | Progress Note ---
Assessment and Plan - Patient Problems (1) Pulmonary emboli Current Visit: Yes Status: Acute Qualifiers: Pulmonary embolism type: other Chronicity: acute Acute cor pulmonale presence: without acute cor pulmonale Qualified Code(s): I26.99 - Other pulmonary embolism without acute cor pulmonale Plan to address problem: See notes above. (2) Shortness of breath Current Visit: Yes Status: Acute Plan to address problem: oxygen. Subjective Date of service: 08/16/17 Interval history: Patient resting in bed, labs reviewed, no new issues at this timer.W/u labs still pending results. Patient in the rest room, record reviewed, INR still low at 1.3, on coumadin. Patient seen, resting, record reviewed, patient getting back to anticoagulation. Objective - Constitutional Vitals: Vital Signs - 12hr 08/16/17 08/16/17 08/16/17 11:29 15:38 16:01 Temperature 98.0 F 98.0 F 98.0 F Pulse Rate 69 68 91 H Respiratory 20 16 20 Rate Blood Pressure 122/84 Blood Pressure 140/92 [Left] O2 Sat by Pulse 96 93 Oximetry 08/16/17 08/16/17 08/16/17 16:58 18:33 19:51 Temperature 98.0 F 97.9 F Pulse Rate 91 H 76 Respiratory 20 18 20 Rate Blood Pressure Blood Pressure 128/93 129/80 [Left] O2 Sat by Pulse 95 96 Oximetry 08/16/17 22:00 Temperature Pulse Rate Respiratory 18 Rate Blood Pressure Blood Pressure [Left] O2 Sat by Pulse Oximetry General appearance: Present: no acute distress, well-nourished - EENT Eyes: PERRL, EOM intact ENT: hearing intact, clear oral mucosa Ears: bilateral: normal - Neck Neck: supple, normal ROM - Respiratory Respiratory effort: normal Respiratory: bilateral: CTA - Breasts Breasts: deferred - Cardiovascular Rhythm: regular Heart Sounds: Present: S1 & S2. Absent: gallop, rub Extremities: pulses intact, No edema, normal color, Full ROM - Gastrointestinal General gastrointestinal: Present: soft, non-tender, non-distended, normal bowel sounds Rectal Exam: deferred - Genitourinary Male genitourinary: deferred - Integumentary Integumentary: clear, warm, dry - Musculoskeletal Musculoskeletal: 1, strength equal bilaterally - Neurologic Neurologic: moves all extremities - Psychiatric Psychiatric: memory intact, appropriate mood/affect, intact judgment & insight - Labs CBC & Chem 7: 08/16/17 05:38 08/16/17 11:16 Labs: Abnormal lab results 08/16/17 08/16/17 08/16/17 Range/Units 05:38 05:42 11:16 Hct 45.9 H (35.5-45.6) % PT 20.5 H (12.2-14.9) Sec. INR 1.65 H (0.87-1.13) Heparin Anti-Xa Level (0.3-0.7) U.I./ml Potassium 5.4 H (3.6-5.0) mmol/L Carbon Dioxide 20 L (22-30) mmol/L Creatinine 1.6 H (0.8-1.5) mg/dL 08/16/17 Range/Units 20:14 Hct (35.5-45.6) % PT (12.2-14.9) Sec. INR (0.87-1.13) Heparin Anti-Xa Level < 0.10 L (0.3-0.7) U.I./ml Potassium (3.6-5.0) mmol/L Carbon Dioxide (22-30) mmol/L Creatinine (0.8-1.5) mg/dL
[2017-08-17] MEDS: NORCO 5/325 PO PRN ×3 (04:20→22:05)
[2017-08-17 06:36] LABS: Hemoglobin 14.1 gm/dl (11.8-15.2)
[2017-08-17] MEDS: ceFAZolin 1 GM in NACL 0.9% 20 ML IV SCH (06:43)
[2017-08-17 06:52] LABS: INR 1.86 (0.87-1.13)
[2017-08-17 07:11] LABS: Calcium 8.7 mg/dL (8.4-10.2)
[2017-08-17] MEDS ORDERED: D50W (25GM) Vial IV ONE ×2 (07:27→18:58)
[2017-08-17] MEDS ORDERED: D50W (25GM) Syringe IV NR (07:30)
[2017-08-17] MEDS ORDERED: HumuLIN R IV NR (07:30)
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
[2017-08-17] MEDS: SODIUM CHLORIDE FLUSH SYRINGE 10 ML IV SCH ×2 (11:07→22:06)
[2017-08-17] MEDS: KIONEX PO SCH ×3 (11:07→22:03)
--- NOTE | 2017-08-17 12:43 | Progress Note ---
Assessment and Plan Acute on chronic PE/DVT -on warfarin for oral anticoagulation Sleep apnea Intermittent second-degree type I and II AV block seen on telemetry strips s/p pacemaker implant ([employer]). Normal function on device interrogation today Echocardiogram 07/2015: showed mild left ventricular dysfunction with ejection fraction 40-45%, but more significantly evidence of cor pulmonale with dilated right heart chambers, flattening of the interventricular septum and at least moderate pulmonary hypertension. Recommend: Stable cardiac [place]. Prescribe short course of pain medication at time of discharge. Patient will f/u with [facility] as scheduled September 11. Subjective Date of service: 08/17/17 Interval history: Patient has no cardiac complaints post pacemaker implant. No redness or edema of pacemaker site. Objective Vital Signs Temp Pulse Resp BP BP Pulse Ox 08/17/17 07:32 98.0 F 82 18 124/78 96 08/17/17 04:55 98 F 78 18 108/81 97 08/17/17 04:40 74 08/17/17 04:27 138/68 08/17/17 04:22 137/74 08/17/17 04:20 20 08/17/17 00:28 98.1 F 74 18 108/76 91 08/16/17 23:54 82 125/80 78 L 08/16/17 23:51 83 108/76 93 08/16/17 22:00 18 08/16/17 19:51 97.9 F 76 20 129/80 96 08/16/17 19:20 75 129/80 98 08/16/17 18:33 18 08/16/17 16:58 98.0 F 91 H 20 128/93 95 08/16/17 16:01 98.0 F 91 H 20 93 08/16/17 15:38 98.0 F 68 16 140/92 - Physical Examination General: No Apparent Distress HEENT: Positive: PERRL Cardiac: Positive: Reg Rate and Rhythm Neuro: Positive: Grossly Intact Skin: Positive: Clear Extremities: Absent: edema - Labs and Meds Coagulation 08/17/17 Range/Units 05:33 PT 22.6 H (12.2-14.9) Sec. INR 1.86 H (0.87-1.13) CBC 08/17/17 Range/Units 05:33 Hgb 14.1 (11.8-15.2) gm/dl Hct 43.0 (35.5-45.6) % Plt Count 171 (140-440) K/mm3 Comprehensive Metabolic Panel 08/17/17 Range/Units 06:00 Sodium 135 L (137-145) mmol/L Potassium 5.2 H (3.6-5.0) mmol/L Chloride 100.2 (98-107) mmol/L Carbon Dioxide 19 L (22-30) mmol/L BUN 15 (9-20) mg/dL Creatinine 1.8 H (0.8-1.5) mg/dL Glucose 147 H (75-100) mg/dL Calcium 8.7 (8.4-10.2) mg/dL
[2017-08-17] MEDS: COUMADIN PO SCH (18:39)
[2017-08-17] MEDS ORDERED: HumuLIN R IV STA (18:58)
[2017-08-17] MEDS ORDERED: D50W (25GM) Syringe IV ONE (20:00)
--- NOTE | 2017-08-17 22:41 | Progress Note ---
Assessment and Plan - Patient Problems (1) Pulmonary emboli Current Visit: Yes Status: Acute Qualifiers: Pulmonary embolism type: other Chronicity: acute Acute cor pulmonale presence: without acute cor pulmonale Qualified Code(s): I26.99 - Other pulmonary embolism without acute cor pulmonale Plan to address problem: See notes above. Continue current management. (2) Shortness of breath Current Visit: Yes Status: Acute Plan to address problem: oxygen. Subjective Date of service: 08/17/17 Interval history: Patient resting in bed, labs reviewed, no new issues at this timer.W/u labs still pending results. Patient in the rest room, record reviewed, INR still low at 1.3, on coumadin. Patient seen, resting, record reviewed, patient getting back to anticoagulation. patient resting in bed. Labs reviewed, INR 1.8 Objective - Constitutional Vitals: Vital Signs - 12hr 08/17/17 08/17/17 08/17/17 11:16 12:50 13:00 Temperature 98.3 F 97.8 F Pulse Rate 83 71 Respiratory 20 20 Rate Blood Pressure Blood Pressure 127/88 [Left] O2 Sat by Pulse 97 Oximetry 08/17/17 08/17/17 08/17/17 16:26 19:27 21:21 Temperature 98.0 F 98.2 F Pulse Rate 75 82 82 Respiratory 20 18 Rate Blood Pressure 136/92 133/107 Blood Pressure [Left] O2 Sat by Pulse 96 99 Oximetry 08/17/17 22:05 Temperature Pulse Rate Respiratory 20 Rate Blood Pressure Blood Pressure [Left] O2 Sat by Pulse Oximetry General appearance: Present: no acute distress, well-nourished - EENT Eyes: PERRL, EOM intact ENT: hearing intact, clear oral mucosa Ears: bilateral: normal - Neck Neck: supple, normal ROM - Respiratory Respiratory effort: normal Respiratory: bilateral: CTA - Breasts Breasts: deferred - Cardiovascular Rhythm: regular Heart Sounds: Present: S1 & S2. Absent: gallop, rub Extremities: pulses intact, No edema, normal color, Full ROM - Gastrointestinal General gastrointestinal: Present: soft, non-tender, non-distended, normal bowel sounds Rectal Exam: deferred - Genitourinary Male genitourinary: deferred - Integumentary Integumentary: clear, warm, dry - Musculoskeletal Musculoskeletal: 1, strength equal bilaterally - Neurologic Neurologic: moves all extremities - Psychiatric Psychiatric: memory intact, appropriate mood/affect, intact judgment & insight - Labs CBC & Chem 7: 08/17/17 05:33 08/17/17 17:14 Labs: Abnormal lab results 08/17/17 08/17/17 08/17/17 Range/Units 05:33 06:00 17:14 PT 22.6 H (12.2-14.9) Sec. INR 1.86 H (0.87-1.13) Sodium 135 L (137-145) mmol/L Potassium 5.2 H 5.3 H (3.6-5.0) mmol/L Carbon Dioxide 19 L (22-30) mmol/L Creatinine 1.8 H (0.8-1.5) mg/dL Glucose 147 H (75-100) mg/dL
[2017-08-18] MEDS: KIONEX PO SCH (02:12)
[2017-08-18 05:55] LABS: Hematocrit 47.7 % (35.5-45.6); Hemoglobin 15.7 gm/dl (11.8-15.2)
[2017-08-18 06:11] LABS: Calcium 9.1 mg/dL (8.4-10.2)
[2017-08-18 06:20] LABS: INR 6.51 (0.87-1.13)
[2017-08-18] MEDS: NORCO 5/325 PO PRN (06:24)
[2017-08-18 08:25] LABS: INR 2.22 (0.87-1.13)
--- NOTE | 2017-08-18 08:45 | Discharge Summary ---
Providers - Providers Date of Admission: 08/10/17 05:09 Date of discharge: 08/18/17 Attending physician: JACINTA MORENO 08/10/17 06:05 Consult to Wound/ET Nurse [CONS] Routine Reason For Exam: wound eval 08/10/17 11:28 Consult to Physician [CONS] Routine Comment: Consulting Provider: SANDRA TIAN Physician Instructions: Reason For Exam: DVT/PE 08/10/17 11:29 Consult to Physician [CONS] Routine Comment: Consulting Provider: JOSE LUIS MARTINEZ Physician Instructions: Reason For Exam: hypercoagulable 08/10/17 17:37 Consult to Wound/ET Nurse [CONS] Routine Reason For Exam: UNNA [employer]OT [employer]ACEMENT LLE Primary care physician: HEAD CUSTODIAN Hospitalization Condition: Fair Disposition: DC-01 TO HOME OR SELFCARE Core Measure Documentation - Palliative Care Palliative Care/ Comfort Measures: Not Applicable - Core Measures Any of the following diagnoses?: none Exam - Constitutional Vitals: Temp Pulse Resp BP Pulse Ox 98.1 F 71 18 125/84 96 08/18/17 04:56 08/18/17 08:02 08/18/17 08:02 08/18/17 08:02 08/18/17 08:02 Plan Activity: advance as tolerated Diet: low fat, low cholesterol, low salt Additional Instructions: 1.Follow up with PCP or [facility] in 1 week. 2.Follow up with Dr. Herrera, cardiology on 09/11/18. 3.Check INR on Sunday at PCP or Dr. Osborne office. 4.Follow up with Dr. Martinez in 3-5 days. 5.Follow up with Dr. Fuentes, Nephrology in 1 week. 6.BMP in 1 week to be followd by PCP Follow up with: PRIMARY CARE, [Primary Care Provider] - 3-5 Days Forms: Warfarin Discharge Instruction Prescriptions: HYDROcodone/APAP 5-325 [[place] 5-325 mg TAB] 1 each PO Q6H PRN #12 tablet PRN Reason: Pain, Moderate (4-6) Warfarin [Coumadin] 10 mg PO DAILY@1700 #30 tablet
--- NOTE | 2017-08-18 10:53 | Progress Note ---
Assessment and Plan Acute on chronic PE/DVT -on warfarin for oral anticoagulation INR theraputic Sleep apnea Intermittent second-degree type I and II AV block seen on telemetry strips s/p pacemaker implant ([employer]). Normal function on device interrogation Echocardiogram 07/2015: showed mild left ventricular dysfunction with ejection fraction 40-45%, but more significantly evidence of cor pulmonale with dilated right heart chambers, flattening of the interventricular septum and at least moderate pulmonary hypertension. Recommend: Stable cardiac [place]. Prescribe short course of pain medication at time of discharge. Patient will f/u with [facility] as scheduled September 11. Subjective Date of service: 08/18/17 Principal diagnosis: PE Interval history: No events overnight Objective Vital Signs Temp Pulse Resp BP BP Pulse Ox 08/18/17 08:02 71 18 125/84 96 08/18/17 08:00 97.8 F 68 20 125/84 96 08/18/17 06:24 18 08/18/17 05:53 85 08/18/17 04:56 98.1 F 83 18 128/94 96 08/18/17 00:01 98.5 F 85 18 127/91 95 08/17/17 22:05 20 08/17/17 21:21 82 08/17/17 19:27 98.2 F 82 18 133/107 99 08/17/17 16:26 98.0 F 75 20 136/92 96 08/17/17 13:00 71 08/17/17 12:50 97.8 F 83 20 127/88 97 08/17/17 11:16 98.3 F 20 - Physical Examination Narrative exam: Physical examination Vitals reviewed GEN: No acute distress noted HEENT: Carotids 2+ NECK: Supple CVS: S1 and S2 heard no significant murmur or gallop noted LUNGS/CHEST: Normal auscultation ABD: Soft nontender Extremities: No edema noted normal color NEURO: Alert moves all all 4 extremities PSY: Stable General: No Apparent Distress HEENT: Positive: PERRL Neck: Positive: neck supple Neuro: Positive: Grossly Intact Abdomen: Positive: Soft Skin: Positive: Clear Extremities: Absent: edema - Labs and Meds Coagulation 08/18/17 08/18/17 Range/Units 04:41 07:22 PT 62.1 H 26.1 H (12.2-14.9) Sec. INR 6.51 H* 2.22 H (0.87-1.13) CBC 08/18/17 Range/Units 04:41 Hgb 15.7 H (11.8-15.2) gm/dl Hct 47.7 H (35.5-45.6) % Plt Count 184 (140-440) K/mm3 Comprehensive Metabolic Panel 08/17/17 08/18/17 Range/Units 17:14 04:41 Sodium 135 L (137-145) mmol/L Potassium 5.3 H 4.8 (3.6-5.0) mmol/L Chloride 100.9 (98-107) mmol/L Carbon Dioxide 17 L (22-30) mmol/L BUN 13 (9-20) mg/dL Creatinine 1.7 H (0.8-1.5) mg/dL Glucose 112 H (75-100) mg/dL Calcium 9.1 (8.4-10.2) mg/dL - Imaging and Cardiology EKG: image reviewed
[2017-08-18] MEDS: SODIUM CHLORIDE FLUSH SYRINGE 10 ML IV SCH (11:13)
[2017-08-18 13:05] VITALS: BP 117/92
== END 2017-08-18 15:03 | disposition home or self-care (01) | DRG 242 ==
LOC: ED 18:39 → 4A 08-10 05:09
PROVIDERS: ADMIT Internal Medicine; ATTEND Internal Medicine
PROC: 0JH606Z Insertion of Pacemaker, Dual Chamber into Chest Subcutaneous Tissue and Fascia, Open Approach (ICD-10-PCS; principal; 2017-08-16)
PROC: 02H63JZ Insertion of Pacemaker Lead into Right Atrium, Percutaneous Approach (ICD-10-PCS; 2017-08-16)
PROC: 02HK3JZ Insertion of Pacemaker Lead into Right Ventricle, Percutaneous Approach (ICD-10-PCS; 2017-08-16)
DX: I82.421 Acute embolism and thrombosis of right iliac vein (principal); I26.99 Other pulmonary embolism without acute cor pulmonale; L97.909 Non-pressure chronic ulcer of unspecified part of unspecified lower leg with unspecified severity; D68.59 Other primary thrombophilia; I13.0 Hypertensive heart and chronic kidney disease with heart failure and stage 1 through stage 4 chronic kidney disease, or unspecified chronic kidney disease; I82.441 Acute embolism and thrombosis of right tibial vein; I82.402 Acute embolism and thrombosis of unspecified deep veins of left lower extremity; I82.503 Chronic embolism and thrombosis of unspecified deep veins of lower extremity, bilateral; I50.9 Heart failure, unspecified; E11.22 Type 2 diabetes mellitus with diabetic chronic kidney disease; I25.10 Atherosclerotic heart disease of native coronary artery without angina pectoris; N18.3 Chronic kidney disease, stage 3 (moderate); I27.20 Pulmonary hypertension, unspecified; I44.1 Atrioventricular block, second degree; G47.30 Sleep apnea, unspecified; Z87.891 Personal history of nicotine dependence; Z88.6 Allergy status to analgesic agent; Z82.49 Family history of ischemic heart disease and other diseases of the circulatory system; Z95.5 Presence of coronary angioplasty implant and graft; Z93.3 Colostomy status; Z87.828 Personal history of other (healed) physical injury and trauma
CPT/HCPCS: 33208; 36415; 71045; 78582; 80048; 84132; 84484; 85014; 85018; 85025; 85049; 85220; 85305; 85307; 85379; 85520; 85610; 85730; 93005; 93010; 93970; A9540; A9558; C1779; C1781; C1785; C1892; J0690; J1644; J2250; J2270; J3010; J3370; J7030

== ENCOUNTER 2017-10-28 03:38 | Emergency (ER) | payer SELFPAY ==
[2017-10-28] MEDS ORDERED: ASPIRIN PO ONE (04:17)
[2017-10-28 05:20] LABS: Basophils % (Auto) 0.6 % (0.0-1.8); Eosinophils % (Auto) 0.5 % (0.0-4.3); Hematocrit 47.5 % (35.5-45.6); Hemoglobin 15.4 gm/dl (11.8-15.2); Lymphocytes # (Auto) 1.7 K/mm3 (1.2-5.4); Lymphocytes % (Auto) 25.7 % (13.4-35.0); Mean Corpuscular HGB Conc 33 % (32-34); Mean Corpuscular Hemoglobin 31 pg (28-32); Mean Corpuscular Volume 95 fl (84-94); Monocytes # (Auto) 0.6 K/mm3 (0.0-0.8); Monocytes % (Auto) 9.2 % (0.0-7.3); Platelet Count 208 K/mm3 (140-440); Red Cell Distribution Width 16.2 % (13.2-15.2)
[2017-10-28 05:38] LABS: BUN/Creatinine Ratio 11; Blood Urea Nitrogen 17 mg/dL (9-20); Calcium 9.2 mg/dL (8.4-10.2); Hemolysis Index 25
[2017-10-28] MEDS ORDERED: ZOFRAN ONE (07:48)
--- NOTE | 2017-10-28 08:00 | XRay Report ---
FINAL REPORT EXAM: XR CHEST 1V AP HISTORY: cp TECHNIQUE: A portable semi-upright view the chest was obtained and compared to the study of 08/16/2017. FINDINGS: The heart size and vascularity appear normal. The lungs are clear. There is a bipolar pacemaker overlying the left chest wall with the leads in the right atrium and right ventricle. The skeletal structures appear well maintained. IMPRESSION: No acute cardiopulmonary process.
[2017-10-28] MEDS ORDERED: NACL 0.9% 1000 ML 1,000 ML IV ONE ×2 (08:27→15:36)
[2017-10-28] MEDS ORDERED: MORPHINE IV ONE (08:27)
[2017-10-28] MEDS ORDERED: ZOFRAN IV ONE (08:27)
[2017-10-28] MEDS ORDERED: ZOFRAN IM ONE (08:42)
[2017-10-28 09:22] LABS: INR 1.26 (0.87-1.13)
[2017-10-28 09:23] LABS: Partial Thromboplastin Time 23.6 Sec. (24.2-36.6)
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
--- NOTE | 2017-10-28 15:18 | Cat Scan Report ---
FINAL REPORT EXAM: CT ABDOMEN PELVIS W CON HISTORY: abd pain, decreased colostomy output, hernia COMPARISON: CT of the abdomen and pelvis performed on 12/17/2016 TECHNIQUE: Multiple contiguous axial images were obtained after administration of IV contrast. Reformatted sagittal and coronal images were available for review. FINDINGS: Lung bases: Normal. Visualized heart and mediastinum: Pacemaker leads are visualized. Liver: Normal. Spleen: Normal. Pancreas: Normal. Gallbladder and Biliary Tree: No calcified gallstones. No biliary ductal dilatation. Adrenal glands: Normal. Kidneys: Symmetric enhancement to both kidneys. No hydronephrosis. Bladder: Normal. Pelvic organs: Normal. Bowel: There is mild distension of distal small bowel loops. Oral contrast advances to the patient's ileostomy in the right abdomen. The loops of bowel proximal to the colostomy are decompressed. There is some high-density material within the rectum. Peritoneum: No significant mesenteric adenopathy. No free air or free fluid. Vasculature: Abdominal aorta is normal in caliber without evidence of aneurysm. The inferior vena cava filter is in place. The portal venous system is normal in appearance. Bones and soft tissues: No suspicious osseous lesions. No acute fracture or dislocation. There diastasis of the rectus abdominus musculature. There is a ventral hernia containing a loop of small bowel that is distended with contrast as well as a portion of bowel proximal to the colostomy. There is no evidence of incarceration or strangulation. The hernia neck measures approximately 3.9 centimeters.Fat containing bilateral inguinal hernias. IMPRESSION: Mild distention of small-bowel loops, however there is no evidence of obstruction as oral contrast advances to the patient's ileostomy Decompressed loops of bowel proximal to the colostomy. There is some solid-appearing and high density stool within the rectum, and fecal impaction is not excluded. Midline ventral hernia containing a loop of small bowel as well as a portion of bowel proximal to the colostomy. No evidence of strangulation or incarceration. The hernia neck measures 3.9 centimeters.
--- NOTE | 2017-10-28 15:42 | History and Physical Report ---
Medications and Allergies Allergies Allergy/AdvReac Type Severity Reaction Status Date / Time lisinopril Allergy Severe Unknown Verified 07/26/15 14:21 Home Medications Medication Instructions Recorded Confirmed Last Taken Type amLODIPine [Norvasc] 10 mg PO DAILY 08/10/17 08/10/17 Unknown History HYDROcodone/APAP 5-325 [[place] 1 each PO Q6H PRN #12 tablet 08/18/17 Unknown Rx 5-325 mg TAB] Warfarin [Coumadin] 10 mg PO DAILY@1700 #30 tablet 08/18/17 Unknown Rx Active Meds: Active Medications Sodium Chloride (Nacl 0.9% 1000 Ml) 1,000 mls @ 125 mls/hr IV ONCE ONE Stop: 10/28/17 16:26 Last Admin: 10/28/17 08:58 Dose: 125 mls/hr Sodium Chloride (Nacl 0.45%) 1,000 mls @ 500 mls/hr IV DIRECT ROSALIO Exam - Constitutional Vitals: Temp Pulse Resp BP Pulse Ox 97.9 F 86 20 129/79 92 10/28/17 04:14 10/28/17 14:00 10/28/17 14:00 10/28/17 14:00 10/28/17 14:00 Results - Labs CBC & Chem 7: 10/28/17 04:40 10/28/17 04:40 Labs: Abnormal lab results 10/28/17 10/28/17 10/28/17 Range/Units 04:40 04:40 08:42 Hgb 15.4 H (11.8-15.2) gm/dl Hct 47.5 H (35.5-45.6) % MCV 95 H (84-94) fl RDW 16.2 H (13.2-15.2) % [place] % (Auto) 9.2 H (0.0-7.3) % PT 16.5 H (12.2-14.9) Sec. INR 1.26 H (0.87-1.13) APTT 23.6 L (24.2-36.6) Sec. D-Dimer 1297.71 H (0-234) ng/mlDDU Creatinine 1.6 H (0.8-1.5) mg/dL Glucose 122 H (75-100) mg/dL NT-Pro-B Natriuret Pep (0-900) pg/mL 10/28/17 Range/Units 08:42 Hgb (11.8-15.2) gm/dl Hct (35.5-45.6) % MCV (84-94) fl RDW (13.2-15.2) % [place] % (Auto) (0.0-7.3) % PT (12.2-14.9) Sec. INR (0.87-1.13) APTT (24.2-36.6) Sec. D-Dimer (0-234) ng/mlDDU Creatinine (0.8-1.5) mg/dL Glucose (75-100) mg/dL NT-Pro-B Natriuret Pep 1192 H (0-900) pg/mL
[2017-10-28] MEDS ORDERED: NACL 0.45% 1,000 ML IV SCH (16:00)
[2017-10-28] MEDS ORDERED: NACL 0.45% 1000 ML 1,000 ML IV ONE (16:54)
[2017-10-28 19:18] LABS: Calcium 8.7 mg/dL (8.4-10.2)
--- NOTE | 2017-10-28 21:57 | Nuclear Medicine Report ---
FINAL REPORT PROCEDURE: NM LUNG SCAN PERF/VENT TECHNIQUE: FIVE mCi Tc-99m MAA was injected IV for pulmonary perfusion imaging in multiple projections. FIFTEEN mCi XENON 133 was inhaled for pulmonary ventilation imaging in multiple projections. Injection site: RIGHT antecubital fossa. CPT 27501 REGULATORY GUIDELINES: The patient was released based upon guidelines established in [place] State Regulations for Protection Against Radiation, Chapter 9956-80-73-35, Release of Individuals Containing Radioactive Drugs or Implants. HISTORY: chest pain and elevated d-dimer COMPARISON: No prior studies are available for comparison. FINDINGS: Perfusion: Nonsegmental linear perfusion defect is identified involving the right upper and middle lobes.. Ventilation: No defects . IMPRESSION: Findings are consistent with low probability for pulmonary embolism.
[2017-10-29 01:07] VITALS: BP 119/85
== END 2017-10-29 01:10 | disposition admitted as inpatient to this hospital (09) ==
LOC: ED 03:38
DX: R10.84 Generalized abdominal pain (principal); R07.89 Other chest pain; R79.1 Abnormal coagulation profile; R55 Syncope and collapse; I10 Essential (primary) hypertension; E11.9 Type 2 diabetes mellitus without complications; Z86.711 Personal history of pulmonary embolism; Z88.8 Allergy status to other drugs, medicaments and biological substances
CPT/HCPCS: 36415; 71045; 74177; 78582; 80048; 83880; 84484; 85025; 85379; 85610; 85730; 87040; 93005; 93010; 96361; 96372; 96374; 96375; 99285; A9540; A9558; J2270; J2405; J7030; Q9967

== ENCOUNTER 2020-02-14 02:11 | Inpatient (IN) | payer MEDICARE ==
[2020-02-14 05:55] LABS: Basophils % (Auto) 0.2 % (0.0-1.8); Lymphocytes # (Auto) 0.8 K/mm3 (1.2-5.4); Lymphocytes % (Auto) 5.9 % (13.4-35.0); Mean Corpuscular HGB Conc 33 % (32-34); Mean Corpuscular Volume 88 fl (84-94); Monocytes # (Auto) 1.2 K/mm3 (0.0-0.8); Monocytes % (Auto) 8.8 % (0.0-7.3); Platelet Count 254 K/mm3 (140-440); Red Blood Count 5.57 M/mm3 (3.65-5.03)
[2020-02-14 05:56] LABS: Red Cell Distribution Width 20.1 % (13.2-15.2)
--- NOTE | 2020-02-14 06:21 | XRay Report ---
CHEST 2 VIEWS INDICATION / CLINICAL INFORMATION: chest burning.. COMPARISON: Chest radiograph 10/28/2017 FINDINGS: SUPPORT DEVICES: Stable position of left chest pacemaker. Interval placement of a right IJ tunneled c entral venous catheter with tip terminating in the distal SVC. HEART / MEDIASTINUM: No significant abnormality. LUNGS / PLEURA: No significant pulmonary or pleural abnormality. No pneumothorax. ADDITIONAL FINDINGS: No significant additional findings. IMPRESSION: 1. No acute findings. Signer Name: Little Kim MD Signed: 02/14/2020 6:17 AM Workstation Name: [id number]
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
[2020-02-14] MEDS ORDERED: SODIUM POLYSTYRENE 15 GM/60 ML ORAL LIQD PO ONE ×2 (07:55→11:00)
[2020-02-14] MEDS ORDERED: PANTOPRAZOLE 40 MG INJ IV ONE ×2 (07:55→12:50)
[2020-02-14] MEDS ORDERED: MORPHINE 2 MG/1 ML INJ IV ONE (07:55)
[2020-02-14] MEDS ORDERED: ONDANSETRON 4 MG/2 ML INJ IV ONE (07:55)
[2020-02-14] MEDS ORDERED: SODIUM CHLORIDE 0.9% 1000 ML 1,000 ML IV ONE (07:56)
[2020-02-14] MEDS ORDERED: PIPERACILLIN/TAZOBACTAM 3.375 3.375 GM/50 ML BAG IV ONE (07:56)
[2020-02-14] MEDS ORDERED: DEXTROSE 50% IN WATER (25GM) 50 ML SYRINGE IV ONE (07:56)
[2020-02-14] MEDS ORDERED: INSULIN REGULAR, HUMAN 100 UNIT/ML 3ML VIAL IV ONE ×2 (07:57→11:00)
[2020-02-14] MEDS ORDERED: INSULIN REGULAR, HUMAN 100 UNITS/1 ML ONE ×2 (08:00)
--- NOTE | 2020-02-14 08:57 | Nuclear Medicine Report ---
NUCLEAR MEDICINE PERFUSION LUNG SCAN INDICATION: hemoptysis. History of factor VIII Leiden deficiency with history of pulmonary emboli TECHNIQUE: 5.2 mCi of Tc-99m MAA were given by IV. COMPARISON: Chest radiograph dated chest CT 02/14/2020. FINDINGS: PERFUSION: Moderate perfusion defect right mid lung field ADDITIONAL FINDINGS: None. IMPRESSION: 1. Intermediate probability for pulmonary embolism. Signer Name: Tam Suarez MD Signed: 02/14/2020 8:52 AM Workstation Name: [id number]
--- NOTE | 2020-02-14 09:23 | Cat Scan Report ---
CT CHEST, ABDOMEN, AND PELVIS WITHOUT CONTRAST INDICATION: abd pain, vomiting, fistula. COMPARISON: CT abdomen pelvis 10/28/2017 TECHNIQUE: All CT scans at this location are performed using CT dose reduction for ALARA by means of automated e xposure control. FINDINGS -- CHEST: Heart: Normal. Thoracic Aorta: No acute abnormality. Mediastinum and [place]: No significant abnormality. Lungs: Mild streaky groundglass parenchymal disease right upper lobe, lingula and both lower lobes abdullahi spicious for early COVID bronchopneumonia Pleura: No significant pleural effusion. No pneumothorax. Airways: No significant abnormality. Additional Findings: Right internal jugular central line and left subclavian pacemaker, unchanged FINDINGS -- ABDOMEN: Liver: Normal. Gallbladder: Normal. Bile Ducts: Normal. Pancreas: Normal. Spleen: Normal. Adrenals: Normal. Right Kidney and Proximal Ureter: Small 1 cm upper pole renal cyst Left Kidney and Proximal Ureter: Normal. Stomach and Bowel: Postsurgical change in right colon and distal small bowel, unchanged. Large ventra l abdominal wall hernia containing loops of small bowel without obstruction. Free Fluid: None. Lymph Nodes: No significant adenopathy. Aorta: No significant abnormality. IVC: IVC filter Additional Findings: None. FINDINGS -- PELVIS: Urinary Bladder and Distal Ureters: Normal. Reproductive Organs: No acute abnormality. Appendix: Normal. Bowel: No acute abnormality. Free Fluid: None. Lymph Nodes: No significant adenopathy. Additional Findings: None. Skeletal System: No acute abnormality. IMPRESSION: 1. Early bilateral pneumonia. Consider COVID testing 2. No acute inflammatory process or bowel obstruction within abdomen or pelvis. 3. No urinary tract calculi or hydronephrosis Signer Name: Tam Suarez MD Signed: 02/14/2020 9:19 AM Workstation Name: [id number]
[2020-02-14 09:48] LABS: INR 1.03 (0.87-1.13)
[2020-02-14 09:49] LABS: Partial Thromboplastin Time 28.5 Sec. (24.2-36.6)
[2020-02-14 10:00] LABS: Albumin 3.3 g/dL (3.9-5); Bilirubin,Direct 0.5 mg/dL (0-0.2)
[2020-02-14] MEDS ORDERED: DEXTROSE 50% IN WATER (25GM) 50 ML SYRINGE IV SCH (11:00)
[2020-02-14] MEDS ORDERED: CALCIUM GLUCONATE 1,000 MG in SODIUM CHLORIDE 0.9% 100 ML IV ONE (11:00)
[2020-02-14] MEDS ORDERED: FUROSEMIDE 40 MG/4 ML INJ IV ONE (11:00)
--- NOTE | 2020-02-14 11:21 | History and Physical Report ---
History of Present Illness Date of examination: 02/14/20 Date of admission: 02/14/20 08:31 Chief complaint: GERD symptoms of nausea and burning associated with coughing up blood has resolved now. 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 Scheduled repair of fistula with hernia on February 26. Presented initially with worsening symptoms of GERD nausea burning until it culminated with patient having an episode of vomiting blood. Somewhat poor historian but patient states he is unsure where it was coming from his nares or his throat. Patient has not noticed any blood since 1 day. Initial work-up rev ealed patient to have bilateral pneumonia. Patient also had leukocytosis as well. Laboratory value patient was also found to have chronic kidney disease. Patient denied any recent contact with any sick individuals any recent travel. Denied any contact with Covid. Denied any fever chills. Will admit patient treat for GERD as well as community-acquired pneumonia and high suspicion for COVID-19 pneumonia as well. Past History Past Medical History: hypertension, other (Pulmonary embolism, GERD, arrhythmia) Past Surgical History: Other (Colostomy) Social history: single, Lives alone, full code. denies: smoking, alcohol abuse, IV drug use Family history: no significant family history Medications and Allergies Allergies Allergy/AdvReac Type Severity Reaction Status Date / Time lisinopril Allergy Severe Unknown Verified 07/26/15 14:21 Home Medications Medication Instructions Recorded Confirmed Last Taken Type amLODIPine 10 mg PO DAILY 08/10/17 08/10/17 Unknown History HYDROcodone/APAP 5-325 [[place] 1 each PO Q6H PRN #12 tablet 08/18/17 Unknown Rx 5-325 mg TAB] Warfarin [Coumadin] 10 mg PO DAILY@1700 #30 tablet 08/18/17 Unknown Rx Active Meds: Active Medications Dextrose (D50w (25gm) Syringe) 25 ml IV Q30MIN [facility]; Protocol Stop: 02/15/20 11:01 Sodium Chloride (Nacl 0.9% 1000 Ml) 1,000 mls @ 125 mls/hr IV ONCE ONE Stop: 02/14/20 15:55 Last Admin: 02/14/20 08:31 Dose: 125 mls/hr Documented by: Review of Systems Constitutional: sweats, fatigue, weakness, other, no weight loss, no weight ga in, no fever, no chills, no night sweats, no anorexia, no malaise, no lethargy, no chronic headaches Ears, nose, mouth and throat: nasal congestion, dysphagia, hoarseness, post- nasal drip, no ear pain, no ear discharge, no decreased hearing, no nose pain, no nasal discharge, no sinus pressure, no sinus pain, no epistaxis, no bleeding gums, no dental pain, no mouth pain, no sore throat, no swelling in mouth, no swelling in throat, no odynophagia, no voice changes, no pain front of neck, no neck lump Cardiovascular: no chest pain, no orthopnea, no palpitations, no shortness of breath, no dyspnea on exertion, no paroxysmal nocturnal dyspnea, no claudication Respiratory: cough, hemoptysis, congestion, no cough with sputum, no excessive sputum, no shortness of breath, no dyspnea on exertion, no wheezing, no pleurisy, no pain, no pain on inspiration, no sleep apnea, no respiratory infections, no home oxygen Gastrointestinal: abdominal pain, nausea, vomiting, hematemesis, loss of appetite, no diarrhea, no constipation, no change in bowel habits, no coffee ground emesis, no BRBPR, no melena, no hematochezia, no early satiety, no excessive gas, no jaundice, no dyspepsia/bloating, no early satiety Musculoskeletal: muscle weakness, no neck stiffness, no neck pain, no shooting arm pain, no arm numbness/tingling, no low back pain, no shooting leg pain, no leg numbness/tingling, no redness of joints, no morning stiffness, no myalgias, no frequent falls, no fractures, no loss of height, no prior amputations Integumentary: no redness, no sores, no wounds, no bullae, no darkening of skin, no depigmentation, no acne Neurological: weakness, no transient paralysis, no numbness, no ataxia, no convulsions, no change in mentation, no confusion, no double vision, no hearing difficulties Psychiatric: no insomnia, no hypersomnia, no disorientation, no hallucinations, no hopelessness, no confusion, no sadness/tearfullness, no mood swings Endocrine: no cold intolerance, no polyphagia, no deepening of the voice, no palpatations, no high blood sugars, no recent glucocorticoid use Allergic/Immunologic: no anaphylaxis, no gluten intolerance Exam - Constitutional Vitals: Temp Pulse Resp BP Pulse Ox 98.0 F 81 23 136/82 100 02/14/20 04:58 02/14/20 07:15 02/14/20 07:15 02/14/20 07:15 02/14/20 07:15 General appearance: Present: no acute distress, well-nourished - EENT Eyes: Present: PERRL ENT: hearing intact, clear oral mucosa - Neck Neck: Present: supple, normal ROM - Respiratory Respiratory effort: normal Respiratory: bilateral: diminished - Cardiovascular Heart Sounds: Present: S1 & S2. Absent: rub, click - Extremities Extremities: pulses symmetrical, No edema Extremity abnormal: other (Venous stasis changes +1 pitting edema.) Peripheral Pulses: within normal limits - Abdominal General gastrointestinal: Present: soft, non-tender, non-distended, other (Colostomy site with herniation. Has significant amount of bilious drainage.) Male genitourinary: Present: normal - Integumentary Integumentary: Present: clear, warm, dry - Musculoskeletal Musculoskeletal: gait normal, strength equal bilaterally - Psychiatric Psychiatric: appropriate mood/affect, intact judgment & insight - Neurologic Neurologic: CNII-XII intact, moves all extremities Results - Labs CBC & Chem 7: 02/14/20 05:36 02/14/20 09:16 Labs: Laboratory Last Values WBC 14.2 K/mm3 (4.5-11.0) H 02/14/20 05:36 RBC 5.57 M/mm3 (3.65-5.03) H 02/14/20 05:36 Hgb 16.0 gm/dl (11.8-15.2) H 02/14/20 05:36 Hct 49.0 % (35.5-45.6) H 02/14/20 05:36 MCV 88 fl (84-94) 02/14/20 05:36 MCH 29 pg (28-32) 02/14/20 05:36 MCHC 33 % (32-34) 02/14/20 05:36 RDW 20.1 % (13.2-15.2) H 02/14/20 05:36 Plt Count 254 K/mm3 (140-440) 02/14/20 05:36 Lymph % (Auto) 5.9 % (13.4-35.0) L 02/14/20 05:36 [place] % (Auto) 8.8 % (0.0-7.3) H 02/14/20 05:36 Eos % (Auto) 0.0 % (0.0-4.3) 02/14/20 05:36 Baso % (Auto) 0.2 % (0.0-1.8) 02/14/20 05:36 Lymph # (Auto) 0.8 K/mm3 (1.2-5.4) L 02/14/20 05:36 [place] # (Auto) 1.2 K/mm3 (0.0-0.8) H 02/14/20 05:36 Eos # (Auto) 0.0 K/mm3 (0.0-0.4) 02/14/20 05:36 Baso # (Auto) 0.0 K/mm3 (0.0-0.1) 02/14/20 05:36 Seg Neutrophils % 85.1 % (40.0-70.0) H 02/14/20 05:36 Seg Neutrophils # 12.1 K/mm3 (1.8-7.7) H 02/14/20 05:36 PT 13.4 Sec. (12.2-14.9) 02/14/20 09:16 INR 1.03 (0.87-1.13) 02/14/20 09:16 APTT 28.5 Sec. (24.2-36.6) 02/14/20 09:16 Sodium 132 mmol/L (137-145) L 02/14/20 09:16 Potassium 6.1 mmol/L (3.6-5.0) H* 02/14/20 09:16 Chloride 98.8 mmol/L (98-107) 02/14/20 09:16 Carbon Dioxide 24 mmol/L (22-30) 02/14/20 09:16 Anion Gap 15 mmol/L 02/14/20 09:16 BUN 56 mg/dL (9-20) H 02/14/20 09:16 Creatinine 1.9 mg/dL (0.8-1.3) H 02/14/20 09:16 Estimated GFR 44 ml/min 02/14/20 09:16 BUN/Creatinine Ratio 29 % 02/14/20 09:16 Glucose 158 mg/dL (75-100) H 02/14/20 09:16 Calcium 11.0 mg/dL (8.4-10.2) H 02/14/20 09:16 Phosphorus 4.10 mg/dL (2.5-4.5) 02/14/20 09:16 Magnesium 2.20 mg/dL (1.7-2.3) 02/14/20 09:16 Total Bilirubin 1.10 mg/dL (0.1-1.2) 02/14/20 09:16 Direct Bilirubin 0.5 mg/dL (0-0.2) H 02/14/20 09:16 Indirect Bilirubin 0.6 mg/dL 02/14/20 09:16 AST 70 units/L (5-40) H 02/14/20 09:16 ALT 151 units/L (7-56) H 02/14/20 09:16 Alkaline Phosphatase 268 units/L (35-129) H 02/14/20 09:16 NT-Pro-B Natriuret Pep 244.6 pg/mL (0-900) 02/14/20 09:16 Total Protein 9.2 g/dL (6.3-8.2) H 02/14/20 09:16 Albumin 3.3 g/dL (3.9-5) L 02/14/20 09:16 Albumin/Globulin Ratio 0.6 % 02/14/20 09:16 Blood Type AB POSITIVE 02/14/20 09:16 Antibody Screen Negative 02/14/20 09:16 - Imaging and Cardiology Chest x-ray: report reviewed, image reviewed CT scan - abdomen: report reviewed, image reviewed CT scan - chest: report reviewed, image reviewed - Diagnostic Impressions Diagnostic Impressions: Bilateral pneumonia. Assessment and Plan Advance Directives: Yes VTE prophylaxis?: Not ordered Contraindication Mechanical VTE Prophylaxis: Contraindicated Reason for no VTE Prophylaxis: Bleeding Plan of care discussed with patient/family: Yes - Patient Problems (1) Acute kidney injury Current Visit: Yes Status: Acute Plan to address problem: Patient with acute on chronic kidney disease. The differential entails prerenal azotemia, viral pneumonia, community-acquired pneumonia as well as worsening renal function from underlying kidney disease. Will obtain nephrology consult [facility]. We will hold gentle diuresis for now secondary to bilateral pneumonia. (2) Acute prerenal azotemia Current Visit: Yes Status: Acute Plan to address problem: Patient eating and drinking. May be losing considerable amount of fluids through his colostomy site. Has awful lot of bowel in the area. Gentle rehydration. (3) CKD (chronic kidney disease) stage 3, GFR 30-59 ml/min Current Visit: Yes Status: Acute Qualifiers: Chronic kidney disease stage 3 subtype: stage 3b (GFR 30-44) Qualified Code(s): N18.32 - Chronic kidney disease, stage 3b Plan to address problem: Gentle rehydration. Will follow renal function nephrology consult. (4) GERD (gastroesophageal reflux disease) Current Visit: Yes Status: Acute Qualifiers: Esophagitis presence: esophagitis presence not specified Qualified Code(s): K21.9 - Gastro-esophageal reflux disease without esophagitis Plan to address problem: Patient with GERD symptoms. GI consult. We will also start patient on Protonix IV every 12. (5) Hemoptysis Current Visit: Yes Status: Acute Plan to address problem: Most likely hematemesis and not hemoptysis. But patient has pneumonia therefore will need to rule this out. Most likely exacerbated by being on oral anticoagulant. Will hold oral anticoagulant for now. (6) Hyperkalemia Current Visit: Yes Status: Acute Plan to address problem: Treated in the ED Kayexalate. (7) CKD (chronic kidney disease) stage 3, GFR 30-59 ml/min Current Visit: No Status: Acute (8) HTN (hypertension) Current Visit: No Status: Chronic Qualifiers: Hypertension type: essential hypertension Qualified Code(s): I10 - Essential (primary) hypertension Plan to address problem: Well-controlled we will continue amlodipine. (9) Pneumonia Current Visit: Yes Status: Acute Plan to address problem: Add Rocephin and azithromycin. Rule out COVID-19 pneumonia. (10) Person under investigation for COVID-19 Current Visit: Yes Status: Acute Plan to address problem: Rule out COVID-19 pneumonia.
[2020-02-14] MEDS ORDERED: ONDANSETRON 4 MG/2 ML INJ IV PRN (11:32)
[2020-02-14] MEDS ORDERED: ACETAMINOPHEN 325 MG TAB PO PRN (11:32)
--- NOTE | 2020-02-14 11:43 | Consultation ---
History of Present Illness - Reason for Consult Consult date: 02/14/20 acute renal failure, chronic renal failure - History of Present Illness ilianaeitdariana with chronic kidney disease was seen By Dr Cooper in [facility] for abnromal kidney function and hyperkalemia was admitted for vomiting blood. Initial work- up revealed patient to have bilateral pneumonia. Patient also had leukocytosis as well. Denied any contact with Covid. Denied any fever chills. he was noted to have abnormal kidney function and hyperkalemia and renal consult was requested Past History Past Medical History: hypertension, other (Pulmonary embolism, GERD, arrhythmia) Past Surgical History: Other (Colostomy) Social history: single, Lives alone, full code. denies: smoking, alcohol abuse, IV drug use Family history: no significant family history Medications and Allergies Allergies Allergy/AdvReac Type Severity Reaction Status Date / Time lisinopril Allergy Severe Unknown Verified 07/26/15 14:21 Home Medications Medication Instructions Recorded Confirmed Last Taken Type amLODIPine 10 mg PO DAILY 08/10/17 08/10/17 Unknown History HYDROcodone/APAP 5-325 [[place] 1 each PO Q6H PRN #12 tablet 08/18/17 Unknown Rx 5-325 mg TAB] Warfarin [Coumadin] 10 mg PO DAILY@1700 #30 tablet 08/18/17 Unknown Rx Active Meds: Active Medications Dextrose (D50w (25gm) Syringe) 25 ml IV Q30MIN [facility]; Protocol Stop: 02/15/20 11:01 Sodium Chloride (Nacl 0.9% 1000 Ml) 1,000 mls @ 125 mls/hr IV ONCE ONE Stop: 02/14/20 15:55 Last Admin: 02/14/20 08:31 Dose: 125 mls/hr Documented by: Review of Systems All systems: negative (nausea and vomting with blood) Exam - Vital Signs Vital signs: Vital Signs Temp Pulse Resp BP Pulse Ox 98.0 F 82 18 143/96 94 02/14/20 04:58 02/14/20 04:58 02/14/20 04:58 02/14/20 04:58 02/14/20 04:58 - General Appearance General appearance: well-developed, well-nourished EENT: mucous membranes moist Neck: Present: neck supple Respiratory: Rales Heart: regular, S1S2 Gastrointestinal: Present: normoactive bowel sounds. Absent: absent bowel sounds, tenderness Integumentary: no rash, warm and dry Neurologic: no focal deficit, no asterixis, alert and oriented x3 Musculoskeletal: Present: other (no edema in BLE) Psychiatric: mood/affect appropriate, cooperative Results - Lab Results 02/14/20 05:36 02/14/20 09:16 Most recent lab results Calcium 11.0 mg/dL (8.4-10.2) H 02/14/20 09:16 Phosphorus 4.10 mg/dL (2.5-4.5) 02/14/20 09:16 Magnesium 2.20 mg/dL (1.7-2.3) 02/14/20 09:16 Assessment and Plan Sepsis secondary to Pneumonia Chronic kidney disease, unknown baseline Hyperkalemia Hemoptysis EKG, calcium glucontae, IV insulin with D50W and kayexelate ordered currently on NS 125 cc/h, will give one dose lasix to help with hyperkalemia urine studies ordered renally dose meds strict I&O daily weight Martinez Whipple MD [phone]
[2020-02-14] MEDS ORDERED: SODIUM CHLORIDE 0.9% 1000 ML 1,000 ML IV SCH (11:45)
[2020-02-14] MEDS ORDERED: FUROSEMIDE 40 MG/4 ML INJ ONE (12:48)
[2020-02-14] MEDS ORDERED: INSULIN REGULAR, HUMAN 100 UNIT/ML 3ML VIAL ONE (12:48)
[2020-02-14] MEDS ORDERED: cefTRIAXone/NS 1 GM/50 ML 1 GM/50 ML BAG IV ONE (12:50)
[2020-02-14] MEDS ORDERED: SODIUM POLYSTYRENE 15 GM/60 ML ORAL LIQD ONE (12:50)
[2020-02-14] MEDS ORDERED: AZITHROMYCIN 250 MG TAB ONE (12:51)
[2020-02-14] MEDS ORDERED: amLODIPine 10 MG TAB ONE (12:52)
[2020-02-14] MEDS: PANTOPRAZOLE 40 MG INJ IV SCH (12:59)
[2020-02-14] MEDS: cefTRIAXone/NS 1 GM/50 ML 1 GM/50 ML BAG IV SCH (12:59)
[2020-02-14] MEDS: AZITHROMYCIN 250 MG TAB PO SCH (13:00)
[2020-02-14] MEDS: amLODIPine 10 MG TAB PO SCH (13:08)
[2020-02-14 13:16] LABS: C-Reactive Protein 5.3 mg/dL (0.00-1.30)
[2020-02-14 14:35] LABS: Calcium 10.5 mg/dL (8.4-10.2)
--- NOTE | 2020-02-14 15:10 | Event Note ---
Date: 02/14/20 Full GI consult dictated - no signs active bleeding - follow h/h - will follow - no scope at this time
[2020-02-14 18:17] LABS: Bilirubin,Urine NEG (Negative); Blood,Urine NEG (Negative); Color,Urine Straw (Yellow); Mucus,Urine FEW /HPF; Protein,Urine <15 mg/dL mg/dL (Negative); Urobilinogen,Urine < 2.0 mg/dL (<2.0); WBC,Urine < 1.0 /HPF (0.0-6.0)
[2020-02-14 18:30] LABS: Creatinine,Urine 39.1 mg/dL (0.1-20.0)
[2020-02-14 18:37] LABS: Creatinine,Urine 39.6 mg/dL (0.1-20.0)
[2020-02-14] MEDS: MORPHINE 2 MG/1 ML INJ IV PRN (20:30)
[2020-02-14] MEDS ORDERED: MORPHINE 2 MG/1 ML INJ ONE (20:40)
[2020-02-15] MEDS: MORPHINE 2 MG/1 ML INJ IV PRN (01:33)
[2020-02-15 06:54] LABS: Basophils % (Auto) 0.3 % (0.0-1.8); Hematocrit 43.5 % (35.5-45.6); Hemoglobin 14.1 gm/dl (11.8-15.2); Lymphocytes # (Auto) 0.7 K/mm3 (1.2-5.4); Lymphocytes % (Auto) 5.2 % (13.4-35.0); Mean Corpuscular HGB Conc 32 % (32-34); Mean Corpuscular Volume 89 fl (84-94); Monocytes # (Auto) 0.9 K/mm3 (0.0-0.8); Monocytes % (Auto) 6.9 % (0.0-7.3); Platelet Count 225 K/mm3 (140-440); Red Blood Count 4.92 M/mm3 (3.65-5.03)
[2020-02-15 06:55] LABS: Red Cell Distribution Width 20.1 % (13.2-15.2)
[2020-02-15 07:18] LABS: Calcium 9.7 mg/dL (8.4-10.2)
--- NOTE | 2020-02-15 08:15 | Consultation ---
History of Present Illness Consult date: 02/15/20 Requesting physician: SANDRA HARRIS Reason for consult: pulmonary embolism History of present illness: 59 y/o male with prior history of bilateral DVT and PE on eliquis presents to the ED on yesterday with complaints of hemoptysis vs hematesis. patient is now a PUI and given shortage of PPE, he is not examined in person and all history is obtained from chart. Per ED note, patient had hemoptysis and vomiting on the day prior to admission. No shortness of breath or chest pain noted. He did complain of esophageal burning. The patient is also on TPN. CT of chest showed some diffuse GGO's that rads feels is consistent with early COVID but I have not seen COVID that looks like that corona on CT. Patient has been placed on PUI precautions and is awaiting covid testing. Pulmonary has been consulted secondary to history of PE. INR, PTT, and TN all normal. Anticoagulation is hold. H and H normal as well Past History Past Medical History: hypertension, other (Pulmonary embolism, GERD, arrhythmia, and bilateral DVT's) Past Surgical History: Other (Colostomy) Social history: single, Lives alone, full code. denies: smoking, alcohol abuse, IV drug use Family history: no significant family history Medications and Allergies Allergies Allergy/AdvReac Type Severity Reaction Status Date / Time lisinopril Allergy Severe Unknown Verified 07/26/15 14:21 Home Medications Medication Instructions Recorded Confirmed Last Taken Type Apixaban [Eliquis] 5 mg PO DAILY 02/14/20 02/14/20 1 Day Ago History ~02/13/20 Bumetanide 1 mg PO DAILY 02/14/20 02/14/20 1 Day Ago History ~02/13/20 Riociguat [Adempas] 2.5 mg PO DAILY 02/14/20 02/14/20 1 Day Ago History ~02/13/20 allopurinoL [Zyloprim] 100 mg PO QDAY 02/14/20 02/14/20 1 Day Ago History ~02/13/20 Active Meds: Active Medications Acetaminophen (Tylenol) 650 mg PO Q4H PRN PRN Reason: Pain MILD(1-3)/Fever >100.5/CARBONE Amlodipine Besylate (Amlodipine) 10 mg PO DAILY [place]ALIO Last Admin: 02/14/20 13:08 Dose: 10 mg Documented by: Azithromycin (Zithromax) 250 mg PO QDAY [facility] Last Admin: 02/14/20 13:00 Dose: 250 mg Documented by: Dextrose (D50w (25gm) Syringe) 25 ml IV Q30MIN [facility]; Protocol Stop: 02/15/20 11:01 Sodium Chloride (Nacl 0.9% 1000 Ml) 1,000 mls @ 75 mls/hr IV DIRECT [facility] Last Admin: 02/14/20 23:13 Dose: 75 mls/hr Documented by: Ceftriaxone Sodium (Rocephin/Ns 1 Gm/50 Ml) 1 gm in 50 mls @ 100 mls/hr IV Q24HR [facility]; Protocol Last Admin: 02/14/20 12:59 Dose: 100 mls/hr Documented by: Morphine Sulfate (Morphine) 2 mg IV Q4H PRN PRN Reason: Pain, Moderate (4-6) Last Admin: 02/15/20 01:33 Dose: 2 mg Documented by: Ondansetron HCl (Zofran) 4 mg IV Q8H PRN PRN Reason: Nausea And Vomiting Pantoprazole Sodium (Protonix) 40 mg IV QDAY [facility] Last Admin: 02/14/20 12:59 Dose: 40 mg Documented by: Sodium Chloride (Sodium Chloride Flush Syringe 10 Ml) 10 ml IV BID [facility] Last Admin: 02/14/20 23:10 Dose: 10 ml Documented by: Sodium Chloride (Sodium Chloride Flush Syringe 10 Ml) 10 ml IV PRN PRN PRN Reason: LINE FLUSH Physical Examination Vital signs: Vital Signs Temp Pulse Resp BP Pulse Ox 98.0 F 82 18 143/96 94 02/14/20 04:58 02/14/20 04:58 02/14/20 04:58 02/14/20 04:58 02/14/20 04:58 Results - Laboratory Findings CBC and BMP: 02/15/20 04:32 02/15/20 04:32 PT/INR, D-dimer PT 13.4 Sec. (12.2-14.9) 02/14/20 09:16 INR 1.03 (0.87-1.13) 02/14/20 09:16 D-Dimer 1076.18 ng/mlDDU (0-234) H 12/05/20 12:20 Abnormal lab findings: Abnormal Labs 02/14/20 02/14/20 02/14/20 05:36 05:36 09:16 WBC 14.2 H RBC 5.57 H Hgb 16.0 H Hct 49.0 H RDW 20.1 H Lymph % (Auto) 5.9 L [place] % (Auto) 8.8 H Lymph # (Auto) 0.8 L [place] # (Auto) 1.2 H Seg Neutrophils % 85.1 H Seg Neutrophils # 12.1 H D-Dimer Sodium 132 L Potassium 6.2 H* Chloride 94.9 L Carbon Dioxide BUN 58 H Creatinine 2.2 H Glucose 163 H POC Glucose Calcium 11.0 H Ferritin Direct Bilirubin 0.5 H AST 70 H ALT 151 H Alkaline Phosphatase 268 H Lactate Dehydrogenase C-Reactive Protein Total Protein 9.2 H Albumin 3.3 L Urine Creatinine Urine Total Protein 02/14/20 02/14/20 02/14/20 09:16 12:20 12:20 WBC RBC Hgb Hct RDW Lymph % (Auto) [place] % (Auto) Lymph # (Auto) [place] # (Auto) Seg Neutrophils % Seg Neutrophils # D-Dimer 1076.18 H Sodium 132 L Potassium 6.1 H* Chloride Carbon Dioxide BUN 56 H Creatinine 1.9 H Glucose 158 H 136 H POC Glucose Calcium 11.0 H Ferritin Direct Bilirubin AST ALT Alkaline Phosphatase Lactate Dehydrogenase 279 H C-Reactive Protein 5.30 H Total Protein Albumin Urine Creatinine Urine Total Protein 02/14/20 02/14/20 02/14/20 12:20 12:42 14:01 WBC RBC Hgb Hct RDW Lymph % (Auto) [place] % (Auto) Lymph # (Auto) [place] # (Auto) Seg Neutrophils % Seg Neutrophils # D-Dimer Sodium 130 L Potassium 5.2 H Chloride Carbon Dioxide BUN 54 H Creatinine 1.8 H Glucose 245 H POC Glucose 231 H Calcium 10.5 H Ferritin 553.3 H Direct Bilirubin AST ALT Alkaline Phosphatase Lactate Dehydrogenase C-Reactive Protein Total Protein Albumin Urine Creatinine Urine Total Protein 02/14/20 02/14/20 02/15/20 Unknown Unknown 04:32 WBC 13.2 H RBC Hgb Hct RDW 20.1 H Lymph % (Auto) 5.2 L [place] % (Auto) Lymph # (Auto) 0.7 L [place] # (Auto) 0.9 H Seg Neutrophils % 87.6 H Seg Neutrophils # 11.5 H D-Dimer Sodium Potassium Chloride Carbon Dioxide BUN Creatinine Glucose POC Glucose Calcium Ferritin Direct Bilirubin AST ALT Alkaline Phosphatase Lactate Dehydrogenase C-Reactive Protein Total Protein Albumin Urine Creatinine 39.1 H 39.6 H Urine Total Protein < 4 L 02/15/20 04:32 WBC RBC Hgb Hct RDW Lymph % (Auto) [place] % (Auto) Lymph # (Auto) [place] # (Auto) Seg Neutrophils % Seg Neutrophils # D-Dimer Sodium 134 L Potassium 6.0 H Chloride Carbon Dioxide 20 L BUN 51 H Creatinine 1.9 H Glucose POC Glucose Calcium Ferritin Direct Bilirubin AST ALT Alkaline Phosphatase Lactate Dehydrogenase C-Reactive Protein Total Protein Albumin Urine Creatinine Urine Total Protein - Diagnostic Findings Chest x-ray: image reviewed CT scan - chest: image reviewed Assessment and Plan 59 y/o man with hemoptysis vs hematemesis vs both on anticoagulation for PE. 1. At this time, no indication for bronchoscopy and no further documentation of hemoptysis via the chart. Suggest restarting anticoagulation and evaluate patient for 24 hours in house on this to see if bleeding comes back 2. Reviewed patient medication list, on Adempas which is for pulmonary htn. dO NOT KNOW of any off label uses for this drug. Will need to investigate why and who prescribed this drug 3. Renal Failure-nephrology is following 4. Hematemesis- GI is following 5. Wean oxygen therapy to off for sats >88%. Per nurses notes sat was 90% on room air. Will need ambulatory test prior to discharge 6. If not able to determine who or why this patient is on adempas, may need echo to evaluate for pulmonary htn.
[2020-02-15] MEDS ORDERED: SODIUM BICARBONATE 150 MEQ in DEXTROSE 5% IN WATER 1,000 ML IV ONE (08:18)
[2020-02-15] MEDS ORDERED: CALCIUM GLUCONATE 1,000 MG in SODIUM CHLORIDE 0.9% 100 ML IV ONE (08:18)
[2020-02-15] MEDS ORDERED: FUROSEMIDE 40 MG/4 ML INJ IV ONE (08:18)
[2020-02-15] MEDS ORDERED: INSULIN REGULAR, HUMAN 100 UNIT/ML 3ML VIAL IV ONE (08:18)
[2020-02-15] MEDS ORDERED: SODIUM POLYSTYRENE 15 GM/60 ML ORAL LIQD PO ONE (08:19)
--- NOTE | 2020-02-15 08:24 | Progress Note ---
Assessment and Plan Sepsis secondary to Pneumonia Chronic kidney disease, unknown baseline Hyperkalemia Hemoptysis potassium improved yesterday bit back to 6.0 MEQ/L again today will repeat EKG, calcium gluconate,, lasix IV insulin with D50W and kayexelate and switch IVF to sodium bicarb will benefit from Loklema daily but it is unavailable in the hospital, will need to be ordered on discharge renally dose meds strict I&O daily weight Martinez Whipple MD [phone] Subjective Date of service: 02/15/20 Principal diagnosis: CKD and hyperkalemia Interval history: denies acute issues Objective - Vital Signs Vital signs: Vital Signs - 12hr 02/14/20 02/14/20 02/14/20 20:30 20:46 22:00 Temperature Pulse Rate 89 98 H Respiratory 28 H 25 H Rate Respiratory 19 Rate [L pain] Respiratory 19 Rate [Right Leg ] Blood Pressure 116/80 116/80 O2 Sat by Pulse 96 90 Oximetry 02/14/20 02/14/20 02/15/20 22:17 23:30 01:33 Temperature 98.0 F Pulse Rate 96 H Respiratory 20 19 19 Rate Respiratory Rate [L pain] Respiratory Rate [Right Leg ] Blood Pressure 131/89 O2 Sat by Pulse 98 90 Oximetry 02/15/20 02/15/20 02:03 06:08 Temperature 98.3 F Pulse Rate 98 H Respiratory 18 18 Rate Respiratory Rate [L pain] Respiratory Rate [Right Leg ] Blood Pressure 108/68 O2 Sat by Pulse 94 Oximetry - General Appearance General appearance: well-developed, well-nourished EENT: ATNC, PERRL Neck: no JVD, no carotid bruit Respiratory: Present: Clear to Ascultation. Absent: Rales, Ronchi Cardiology: regular, S1S2 Gastrointestinal: normoactive bowel sounds, no tenderness, no distended Integumentary: no rash, warm and dry Neurologic: no focal deficit, no asterixis, alert and oriented x3 Musculoskeletal: other (no edema in BLE) Psychiatric: mood/affect appropriate, cooperative - Lab 02/15/20 04:32 02/15/20 04:32 Most recent lab results Calcium 9.7 mg/dL (8.4-10.2) 02/15/20 04:32 Phosphorus 3.80 mg/dL (2.5-4.5) 02/15/20 04:32 Magnesium 2.20 mg/dL (1.7-2.3) 02/14/20 09:16 Urine Creatinine 39.1 mg/dL (0.1-20.0) H 02/14/20 Unknown Urine Creatinine 39.6 mg/dL (0.1-20.0) H 02/14/20 Unknown Urine Sodium 52 mmol/L 02/14/20 Unknown Urine Total Protein < 4 mg/dL (5-11.8) L 02/14/20 Unknown Medications & Allergies - Medications Allergies/Adverse Reactions: Allergies lisinopril Allergy (Severe, Verified 07/26/15 14:21) Unknown Home Medications: Home Medications Medication Instructions Recorded Confirmed Last Taken Type Apixaban [Eliquis] 5 mg PO DAILY 02/14/20 02/14/20 1 Day Ago History ~02/13/20 Bumetanide 1 mg PO DAILY 02/14/20 02/14/20 1 Day Ago History ~02/13/20 Riociguat [Adempas] 2.5 mg PO DAILY 02/14/20 02/14/20 1 Day Ago History ~02/13/20 allopurinoL [Zyloprim] 100 mg PO QDAY 02/14/20 02/14/20 1 Day Ago History ~02/13/20 Active Medications: Generic Name Dose Route Start Last Admin Trade Name Freq PRN Reason Stop Dose Admin Acetaminophen 650 mg 02/14/20 11:32 Tylenol PO Q4H PRN Pain MILD(1-3)/Fever >100.5/CARBONE Amlodipine Besylate 10 mg 02/14/20 12:00 02/14/20 13:08 Amlodipine PO 10 mg DAILY ROSALIO Administration Azithromycin 250 mg 02/14/20 12:00 02/14/20 13:00 Zithromax PO 250 mg QDAY ROSALIO Administration Dextrose 25 ml 02/14/20 11:00 D50w (25gm) Syringe IV 02/15/20 11:01 Q30MIN ROSALIO Protocol Dextrose 25 ml 02/15/20 09:00 D50w (25gm) Syringe IV 02/16/20 09:01 Q30MIN ROSALIO Protocol Furosemide 40 mg 02/15/20 08:18 Lasix IV 02/15/20 08:19 ONCE ONE Ceftriaxone Sodium 1 gm in 50 mls @ 100 mls/hr 02/14/20 12:00 02/14/20 12:59 Rocephin/Ns 1 Gm/50 Ml IV 100 mls/hr Q24HR ROSALIO Administration Protocol Calcium Gluconate 1,000 mg/ 110 mls @ 660 mls/hr 02/15/20 08:18 Sodium Chloride IV 02/15/20 08:27 ONCE ONE Sodium Bicarbonate 150 meq/ 1,150 mls @ 100 mls/hr 02/15/20 08:18 Dextrose IV 02/15/20 19:47 DIRECT ONE Insulin Human Regular 5 unit 02/15/20 08:18 Humulin R IV 02/15/20 08:19 ONCE ONE Morphine Sulfate 2 mg 02/14/20 11:32 02/15/20 01:33 Morphine IV 2 mg Q4H PRN Administration Pain, Moderate (4-6) Ondansetron HCl 4 mg 02/14/20 11:32 Zofran IV Q8H PRN Nausea And Vomiting Pantoprazole Sodium 40 mg 02/14/20 12:00 02/14/20 12:59 Protonix IV 40 mg QDAY ROSALIO Administration Sodium Chloride 10 ml 02/14/20 22:00 02/14/20 23:10 Sodium Chloride Flush Syringe 10 Ml IV 10 ml BID ROSALIO Administration Sodium Chloride 10 ml 02/14/20 11:32 Sodium Chloride Flush Syringe 10 Ml IV PRN PRN LINE FLUSH Sodium Polystyrene Sulfonate 30 gm 02/15/20 08:19 Kionex PO 02/15/20 08:20 ONCE ONE
[2020-02-15] MEDS ORDERED: DEXTROSE 50% IN WATER (25GM) 50 ML SYRINGE IV SCH (09:00)
--- NOTE | 2020-02-15 09:23 | Progress Note ---
Assessment and Plan - Patient Problems (1) Acute kidney injury Current Visit: Yes Status: Acute Plan to address problem: Patient with acute on chronic kidney disease. The differential entails prerenal azotemia, viral pneumonia, community-acquired pneumonia as well as worsening renal function from underlying kidney disease. Will obtain nephrology consult [facility] nephrology. We will hold gentle diuresis for now secondary to bilateral pneumonia. Patient has long history of chronic kidney disease. Treated again for hyperkalemia today. Calcium gluconate/insulin/Lasix refused Kayexalate secondary to nausea and vomiting from previous treatment. (2) Acute prerenal azotemia Current Visit: Yes Status: Acute Plan to address problem: Patient eating and drinking. Now much less drainage from colostomy site.. (3) CKD (chronic kidney disease) stage 3, GFR 30-59 ml/min Current Visit: Yes Status: Acute Qualifiers: Chronic kidney disease stage 3 subtype: stage 3b (GFR 30-44) Qualified Code(s): N18.32 - Chronic kidney disease, stage 3b Plan to address problem: Gentle rehydration. Will follow renal function nephrology Renal following. (4) GERD (gastroesophageal reflux disease) Current Visit: Yes Status: Acute Qualifiers: Esophagitis presence: esophagitis presence not specified Qualified Code(s): K21.9 - Gastro-esophageal reflux disease without esophagitis Plan to address problem: Patient with GERD symptoms. GI consult. We will also start patient on Protonix IV every 12. Much better with in addition of proton pump inhibitor. (5) Hemoptysis Current Visit: Yes Status: Acute Plan to address problem: Most likely hematemesis and not hemoptysis. But patient has pneumonia therefore will need to rule this out. Has resolved will restart anticoagulation. (6) Hyperkalemia Current Visit: Yes Status: Acute Plan to address problem: Patient potassium went back up to 8 after initial treatment. Will treat again follow-up chemistry in a.m. (7) CKD (chronic kidney disease) stage 3, GFR 30-59 ml/min Current Visit: No Status: Acute (8) HTN (hypertension) Current Visit: No Status: Chronic Qualifiers: Hypertension type: essential hypertension Qualified Code(s): I10 - Essential (primary) hypertension Plan to address problem: Well-controlled we will continue amlodipine. (9) Pneumonia Current Visit: Yes Status: Acute Plan to address problem: Add Rocephin and azithromycin. Rule out COVID-19 pneumonia. Serology from Covid still pending. Will call laboratory. Patient does have mild inflammation of inflammatory markers. (10) Person under investigation for COVID-19 Current Visit: Yes Status: Acute Plan to address problem: Rule out COVID-19 pneumonia. 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 Scheduled repair of fistula with hernia on February 26. Presented initially with worsening symptoms of GERD nausea and subsequently developed episode of vomiting blood. This is since resolved. . Patient has not noticed any blood since 1 day. Initial work-up revealed patient to have bilateral pneumonia. Patient also had leukocytosis as well. Laboratory value patient was also found to have acute on chronic kidney disease. Patient denied any recent contact with any sick individuals any recent travel. Denied any contact with Covid. Denied any fever chills. Will admit patient treat for GERD as well as community-acquired pneumonia and high suspicion for COVID-19 pneumonia as well. Patient states he feels much better today. No more nausea and vomiting. No more shortness of breath. No hematemesis or hemoptysis. Vital signs stable no chest pain. Objective - Constitutional Vitals: Vital Signs - 12hr 02/14/20 02/14/20 02/14/20 22:00 22:17 23:30 Temperature 98.0 F Pulse Rate 96 H Respiratory 20 19 Rate Respiratory 19 Rate [L pain] Respiratory 19 Rate [Right Leg ] Blood Pressure 131/89 O2 Sat by Pulse 98 90 Oximetry 02/15/20 02/15/20 02/15/20 01:33 02:03 06:08 Temperature 98.3 F Pulse Rate 98 H Respiratory 19 18 18 Rate Respiratory Rate [L pain] Respiratory Rate [Right Leg ] Blood Pressure 108/68 O2 Sat by Pulse 94 Oximetry General appearance: Present: no acute distress, well-nourished - EENT Eyes: PERRL, EOM intact ENT: hearing intact, clear oral mucosa Ears: bilateral: normal - Neck Neck: supple, normal ROM - Respiratory Respiratory effort: normal Respiratory: bilateral: CTA - Breasts Breasts: normal - Cardiovascular Rhythm: regular Heart Sounds: Present: S1 & S2. Absent: gallop, rub Extremities: pulses intact, No edema, normal color, Full ROM - Gastrointestinal General gastrointestinal: Present: soft, non-tender, non-distended, normal bowel sounds - Genitourinary Male genitourinary: normal - Integumentary Integumentary: clear, warm, dry - Musculoskeletal Musculoskeletal: 1, strength equal bilaterally - Neurologic Neurologic: moves all extremities - Psychiatric Psychiatric: memory intact, appropriate mood/affect, intact judgment & insight - Labs CBC & Chem 7: 02/15/20 04:32 02/15/20 04:32 Labs: Abnormal lab results 02/14/20 02/14/20 02/14/20 Range/Units 09:16 09:16 12:20 WBC (4.5-11.0) K/mm3 RDW (13.2-15.2) % Lymph % (Auto) (13.4-35.0) % Lymph # (Auto) (1.2-5.4) K/mm3 [place] # (Auto) (0.0-0.8) K/mm3 Seg Neutrophils % (40.0-70.0) % Seg Neutrophils # (1.8-7.7) K/mm3 D-Dimer 1076.18 H (0-234) ng/mlDDU Sodium 132 L (137-145) mmol/L Potassium 6.1 H* (3.6-5.0) mmol/L Carbon Dioxide (22-30) mmol/L BUN 56 H (9-20) mg/dL Creatinine 1.9 H (0.8-1.3) mg/dL Glucose 158 H (75-100) mg/dL POC Glucose (70-105) mg/dL Calcium 11.0 H (8.4-10.2) mg/dL Ferritin (30.0-300.0) ng/mL Direct Bilirubin 0.5 H (0-0.2) mg/dL AST 70 H (5-40) units/L ALT 151 H (7-56) units/L Alkaline Phosphatase 268 H (35-129) units/L Lactate Dehydrogenase (91-180) units/L C-Reactive Protein (0.00-1.30) mg/dL Total Protein 9.2 H (6.3-8.2) g/dL Albumin 3.3 L (3.9-5) g/dL Urine Creatinine (0.1-20.0) mg/dL Urine Total Protein (5-11.8) mg/dL 02/14/20 02/14/20 02/14/20 Range/Units 12: 12:20 12:42 WBC (4.5-11.0) K/mm3 RDW (13.2-15.2) % Lymph % (Auto) (13.4-35.0) % Lymph # (Auto) (1.2-5.4) K/mm3 [place] # (Auto) (0.0-0.8) K/mm3 Seg Neutrophils % (40.0-70.0) % Seg Neutrophils # (1.8-7.7) K/mm3 D-Dimer (0-234) ng/mlDDU Sodium (137-145) mmol/L Potassium (3.6-5.0) mmol/L Carbon Dioxide (22-30) mmol/L BUN (9-20) mg/dL Creatinine (0.8-1.3) mg/dL Glucose 136 H (75-100) mg/dL POC Glucose 231 H (70-105) mg/dL Calcium (8.4-10.2) mg/dL Ferritin 553.3 H (30.0-300.0) ng/mL Direct Bilirubin (0-0.2) mg/dL AST (5-40) units/L ALT (7-56) units/L Alkaline Phosphatase (35-129) units/L Lactate Dehydrogenase 279 H (91-180) units/L C-Reactive Protein 5.30 H (0.00-1.30) mg/dL Total Protein (6.3-8.2) g/dL Albumin (3.9-5) g/dL Urine Creatinine (0.1-20.0) mg/dL Urine Total Protein (5-11.8) mg/dL 02/14/20 02/14/20 02/14/20 Range/Units 14:01 Unknown Unknown WBC (4.5-11.0) K/mm3 RDW (13.2-15.2) % Lymph % (Auto) (13.4-35.0) % Lymph # (Auto) (1.2-5.4) K/mm3 [place] # (Auto) (0.0-0.8) K/mm3 Seg Neutrophils % (40.0-70.0) % Seg Neutrophils # (1.8-7.7) K/mm3 D-Dimer (0-234) ng/mlDDU Sodium 130 L (137-145) mmol/L Potassium 5.2 H (3.6-5.0) mmol/L Carbon Dioxide (22-30) mmol/L BUN 54 H (9-20) mg/dL Creatinine 1.8 H (0.8-1.3) mg/dL Glucose 245 H (75-100) mg/dL POC Glucose (70-105) mg/dL Calcium 10.5 H (8.4-10.2) mg/dL Ferritin (30.0-300.0) ng/mL Direct Bilirubin (0-0.2) mg/dL AST (5-40) units/L ALT (7-56) units/L Alkaline Phosphatase (35-129) units/L Lactate Dehydrogenase (91-180) units/L C-Reactive Protein (0.00-1.30) mg/dL Total Protein (6.3-8.2) g/dL Albumin (3.9-5) g/dL Urine Creatinine 39.1 H 39.6 H (0.1-20.0) mg/dL Urine Total Protein < 4 L (5-11.8) mg/dL 02/15/20 02/15/20 Range/Units 04:32 04:32 WBC 13.2 H (4.5-11.0) K/mm3 RDW 20.1 H (13.2-15.2) % Lymph % (Auto) 5.2 L (13.4-35.0) % Lymph # (Auto) 0.7 L (1.2-5.4) K/mm3 [place] # (Auto) 0.9 H (0.0-0.8) K/mm3 Seg Neutrophils % 87.6 H (40.0-70.0) % Seg Neutrophils # 11.5 H (1.8-7.7) K/mm3 D-Dimer (0-234) ng/mlDDU Sodium 134 L (137-145) mmol/L Potassium 6.0 H (3.6-5.0) mmol/L Carbon Dioxide 20 L (22-30) mmol/L BUN 51 H (9-20) mg/dL Creatinine 1.9 H (0.8-1.3) mg/dL Glucose (75-100) mg/dL POC Glucose (70-105) mg/dL Calcium (8.4-10.2) mg/dL Ferritin (30.0-300.0) ng/mL Direct Bilirubin (0-0.2) mg/dL AST (5-40) units/L ALT (7-56) units/L Alkaline Phosphatase (35-129) units/L Lactate Dehydrogenase (91-180) units/L C-Reactive Protein (0.00-1.30) mg/dL Total Protein (6.3-8.2) g/dL Albumin (3.9-5) g/dL Urine Creatinine (0.1-20.0) mg/dL Urine Total Protein (5-11.8) mg/dL
[2020-02-15] MEDS: cefTRIAXone/NS 1 GM/50 ML 1 GM/50 ML BAG IV SCH (09:53)
[2020-02-15] MEDS: PANTOPRAZOLE 40 MG INJ IV SCH (09:53)
[2020-02-15] MEDS: amLODIPine 10 MG TAB PO SCH (09:53)
[2020-02-15] MEDS: AZITHROMYCIN 250 MG TAB PO SCH (10:03)
--- NOTE | 2020-02-15 11:37 | Event Note ---
Date: 02/15/20 Spoke with Mr. Conner over the phone. His television service engineer manages his pulmonary htn. He has seen Dr. Xander Tovar with [facility] in the past but per him, cardiology manages his pulmonary HTN.
--- NOTE | 2020-02-15 13:37 | Consultation ---
REFERRING PHYSICIAN: Franko Robles MD INDICATION: Hematemesis. HISTORY OF PRESENT ILLNESS: The patient is a 59-year-old black male with history of pulmonary embolism, GERD, and arrhythmia, status post colostomy in the past, now being seen by GI for a question of hematemesis. The patient presents with symptoms of worsening GERD with nausea and burning epigastric area and throat and reported coughing up blood. The patient is a poor historian. He reports that he has been having a productive cough and over the last day or 2, he has noted 6 to 7 bouts where bright red blood was noted in the sputum. He denies any melena. He denies any coffee-ground emesis. He does report some nausea and vomiting of bilious material. The patient subsequently was admitted where he was noted to have pneumonia, admitted and GI consulted. He denies any history of gastrointestinal bleed in the past. PAST MEDICAL HISTORY: 1. Hypertension. 2. Pulmonary embolism. 3. GERD. 4. Arrhythmia. PAST SURGICAL HISTORY: Status post colostomy. MEDICATIONS: Reviewed and updated in chart. ALLERGIES: LISINOPRIL. SOCIAL HISTORY: Denies alcohol, tobacco or drug abuse. FAMILY HISTORY: Negative for colon cancer, IBD, or liver disease. REVIEW OF SYSTEMS: GENERAL: Reports some weakness. HEENT: No visual complaints or tinnitus. PULMONARY: No shortness of breath. No cough. No chest pain. GASTROINTESTINAL: Reports a question of hematemesis. All points of 13-point review of systems otherwise negative. PHYSICAL EXAMINATION: VITAL SIGNS: Temperature of 98.0, pulse 82, respiration 18, blood pressure 143/90. GENERAL: Fairly nourished male in no acute distress. HEENT: Pupils are equal, round and reactive. PULMONARY: Clear. CARDIOVASCULAR: Regular rhythm. Normal S1, S2. ABDOMEN: Palpable soft. SKIN: No obvious rashes. LABORATORY DATA: Pertinent for white count of 14.2, hemoglobin and hematocrit of 16 and 49, platelet count of 254. Chem-7 pertinent for sodium of 132, potassium 6.1, chloride 98, CO2 of 24, BUN and creatinine of 36 and 1.9. AST and ALT of 70 and 151, alkaline phosphatase of 268. CT scan of abdomen and pelvis with contrast performed on 02/14/2020 showed bilateral pneumonia, but no otherwise significant pathology. ASSESSMENT: A 59-year-old male with past medical history noted above, now with productive cough with sputum and CT scan show pneumonia, now being seen by GI for a question of hematemesis. The patient reports that the material was not coffee-ground and was bright red with productive sputum. I suspect that this is most likely pulmonary in origin, but cannot rule out significant GI pathology. At this time, no obvious intervention from a GI standpoint is necessary. PLAN: 1. Follow hematocrit and transfuse as needed. 2. PPI IV b.i.d. 3. Pneumonia and other metabolic management per primary team. 4. No plans for EGD at this time. 5. We will follow with further recommendation based on progress. JOB# [id number] CAB/NTS MTDD
[2020-02-15] MEDS ORDERED: RIOCIGUAT 2.5 MG PO SCH (14:15)
[2020-02-15 16:39] LABS: Calcium 9.2 mg/dL (8.4-10.2)
--- NOTE | 2020-02-15 16:53 | Gastroenterology Progress Note ---
Assessment and Plan GI: presented w/ ?hematemesis without signs bleeding overnight - h/h stable at this time - continue PPI qd - no plans to scope at this time - will follow Subjective Date of service: 02/15/20 Principal diagnosis: CKD and hyperkalemia Interval history: - no GI complaints overnight. Denies signs bleeding Objective - Constitutional Vitals: Temp Pulse Resp BP Pulse Ox 97.9 F 88 19 137/70 99 02/15/20 12:07 02/15/20 12:07 02/15/20 12:07 02/15/20 12:07 02/15/20 12:07 General appearance: no acute distress - EENT Eyes: PERRL - Respiratory Respiratory: bilateral: CTA - Cardiovascular Rhythm: regular Heart Sounds: Present: S1 & S2 - Gastrointestinal General gastrointestinal: Present: soft, non-tender, non-distended - Labs CBC & Chem 7: 02/15/20 04:32 02/15/20 15:31 Labs: Laboratory Results - last 24 hr 02/14/20 02/14/20 02/14/20 22:16 Unknown Unknown WBC RBC Hgb Hct MCV MCH MCHC RDW Plt Count Lymph % (Auto) [place] % (Auto) Eos % (Auto) Baso % (Auto) Lymph # (Auto) [place] # (Auto) Eos # (Auto) Baso # (Auto) Seg Neutrophils % Seg Neutrophils # Sodium Potassium Chloride Carbon Dioxide Anion Gap BUN Creatinine Estimated GFR BUN/Creatinine Ratio Glucose POC Glucose 99 Calcium Phosphorus Urine Color Straw Urine Turbidity Clear Urine pH 5.0 Ur Specific [place] 1.012 Urine Protein <15 mg/dl Urine Glucose (UA) Neg Urine Ketones Neg Urine Blood Neg Urine Nitrite Neg Urine Bilirubin Neg Urine Urobilinogen < 2.0 Ur Leukocyte Esterase Neg Urine WBC (Auto) < 1.0 Urine RBC (Auto) 1.0 Urine Mucus Few Urine Creatinine 39.1 H Protein/Creatinin Ratio Urine Sodium 52 Urine Total Protein Coronavirus (PCR) 02/14/20 02/15/20 02/15/20 Unknown 04:32 04:32 WBC 13.2 H RBC 4.92 Hgb 14.1 Hct 43.5 MCV 89 MCH 29 MCHC 32 RDW 20.1 H Plt Count 225 Lymph % (Auto) 5.2 L [place] % (Auto) 6.9 Eos % (Auto) 0.0 Baso % (Auto) 0.3 Lymph # (Auto) 0.7 L [place] # (Auto) 0.9 H Eos # (Auto) 0.0 Baso # (Auto) 0.0 Seg Neutrophils % 87.6 H Seg Neutrophils # 11.5 H Sodium 134 L Potassium 6.0 H Chloride 100.3 Carbon Dioxide 20 L Anion Gap 20 BUN 51 H Creatinine 1.9 H Estimated GFR 44 BUN/Creatinine Ratio 27 Glucose 87 POC Glucose Calcium 9.7 Phosphorus 3.80 Urine Color Urine Turbidity Urine pH Ur Specific [place] Urine Protein Urine Glucose (UA) Urine Ketones Urine Blood Urine Nitrite Urine Bilirubin Urine Urobilinogen Ur Leukocyte Esterase Urine WBC (Auto) Urine RBC (Auto) Urine Mucus Urine Creatinine 39.6 H Protein/Creatinin Ratio 0.10 Urine Sodium Urine Total Protein < 4 L Coronavirus (PCR) 02/15/20 02/15/20 10:08 15:31 WBC RBC Hgb Hct MCV MCH MCHC RDW Plt Count Lymph % (Auto) [place] % (Auto) Eos % (Auto) Baso % (Auto) Lymph # (Auto) [place] # (Auto) Eos # (Auto) Baso # (Auto) Seg Neutrophils % Seg Neutrophils # Sodium 133 L Potassium 4.9 Chloride 97.4 L Carbon Dioxide 25 Anion Gap 16 BUN 49 H Creatinine 1.8 H Estimated GFR 47 BUN/Creatinine Ratio 27 Glucose 202 H POC Glucose Calcium 9.2 Phosphorus Urine Color Urine Turbidity Urine pH Ur Specific [place] Urine Protein Urine Glucose (UA) Urine Ketones Urine Blood Urine Nitrite Urine Bilirubin Urine Urobilinogen Ur Leukocyte Esterase Urine WBC (Auto) Urine RBC (Auto) Urine Mucus Urine Creatinine Protein/Creatinin Ratio Urine Sodium Urine Total Protein Coronavirus (PCR) Negative
[2020-02-15] MEDS: APIXABAN 5 MG TAB PO SCH (16:56)
[2020-02-15] MEDS ORDERED: TOTAL PARENTERAL NUTRITION 2,016 ML IV SCH (20:00)
[2020-02-16 06:40] LABS: Hematocrit 41.1 % (35.5-45.6); Hemoglobin 13.5 gm/dl (11.8-15.2); Mean Corpuscular HGB Conc 33 % (32-34); Mean Corpuscular Volume 89 fl (84-94); Platelet Count 206 K/mm3 (140-440); Red Blood Count 4.62 M/mm3 (3.65-5.03)
[2020-02-16 07:03] LABS: Calcium 9.1 mg/dL (8.4-10.2)
[2020-02-16 07:06] LABS: Red Cell Distribution Width 20.2 % (13.2-15.2)
[2020-02-16] MEDS: amLODIPine 10 MG TAB PO SCH (09:57)
[2020-02-16] MEDS: cefTRIAXone/NS 1 GM/50 ML 1 GM/50 ML BAG IV SCH (09:57)
[2020-02-16] MEDS: PANTOPRAZOLE 40 MG INJ IV SCH (09:58)
[2020-02-16] MEDS: APIXABAN 5 MG TAB PO SCH (09:58)
[2020-02-16] MEDS: AZITHROMYCIN 250 MG TAB PO SCH (09:58)
--- NOTE | 2020-02-16 10:13 | Progress Note ---
Assessment and Plan Assessment: Sepsis secondary to Pneumonia Chronic kidney disease, stage 3 Hyperkalemia, Resolved Hemoptysis Plan: Renal labs reviewed. Serum creatinine 1.8 today, yesterday's was 1.8, stable. Review of previous labs from [id number] showed baseline serum creatinine 1.6-1.8 Obtain renal ultrasound Urine lytes reviewed, no significant proteinuria Potassium level better today at 3.9 Avoid nephrotoxic agents Renally dose medications Strict I&O's daily Obtain daily weights Continue to monitor Plan of care reviewed with Dr. Peacock Subjective Date of service: 02/16/20 Principal diagnosis: CKD and hyperkalemia Interval history: Patient seen lying in bed. Reviewed renal labs and answered questions. Objective - Vital Signs Vital signs: Vital Signs - 12hr 02/16/20 02/16/20 05:20 09:57 Temperature 97.6 F Pulse Rate 76 Respiratory 18 Rate Blood Pressure 100/72 106/69 O2 Sat by Pulse 96 Oximetry - General Appearance General appearance: well-developed, appears stated age EENT: ATNC, PERRL, hearing intact, vision intact Neck: no JVD, supple Respiratory: Present: Decreased Breath Sounds Cardiology: S1S2 Gastrointestinal: normoactive bowel sounds Integumentary: warm and dry Neurologic: alert and oriented x3 Musculoskeletal: other (has trace edema to BLE) Psychiatric: cooperative - Lab 02/16/20 04:32 02/16/20 04:32 Most recent lab results Calcium 9.1 mg/dL (8.4-10.2) 02/16/20 04:32 Phosphorus 3.80 mg/dL (2.5-4.5) 02/15/20 04:32 Magnesium 2.10 mg/dL (1.7-2.3) 02/16/20 04:32 Urine Creatinine 39.1 mg/dL (0.1-20.0) H 02/14/20 Unknown Urine Creatinine 39.6 mg/dL (0.1-20.0) H 02/14/20 Unknown Urine Sodium 52 mmol/L 02/14/20 Unknown Urine Total Protein < 4 mg/dL (5-11.8) L 02/14/20 Unknown Medications & Allergies - Medications Allergies/Adverse Reactions: Allergies lisinopril Allergy (Severe, Verified 07/26/15 14:21) Unknown Home Medications: Home Medications Medication Instructions Recorded Confirmed Last Taken Type Apixaban [Eliquis] 5 mg PO DAILY 02/14/20 02/14/20 1 Day Ago History ~02/13/20 Bumetanide 1 mg PO DAILY 02/14/20 02/14/20 1 Day Ago History ~02/13/20 Riociguat [Adempas] 2.5 mg PO DAILY 02/14/20 02/14/20 1 Day Ago History ~02/13/20 allopurinoL [Zyloprim] 100 mg PO QDAY 02/14/20 02/14/20 1 Day Ago History ~02/13/20 Active Medications: Generic Name Dose Route Start Last Admin Trade Name Freq PRN Reason Stop Dose Admin Acetaminophen 650 mg 02/14/20 11:32 Tylenol PO Q4H PRN Pain MILD(1-3)/Fever >100.5/CARBONE Amlodipine Besylate 10 mg 02/14/20 12:00 02/16/20 09:57 Amlodipine PO Not Given DAILY [facility] Apixaban 5 mg 02/15/20 15:00 02/16/20 09:58 Eliquis PO 5 mg DAILY ROSALIO Administration Protocol Azithromycin 250 mg 02/14/20 12:00 02/16/20 09:58 Zithromax PO 250 mg QDAY ROSALIO Administration Ceftriaxone Sodium 1 gm in 50 mls @ 100 mls/hr 02/14/20 12:00 02/16/20 09:57 Rocephin/Ns 1 Gm/50 Ml IV 100 mls/hr Q24HR ROSALIO Administration Protocol Amino Acids/Electrolytes/Dextrose 2,016 mls @ 0 mls/hr 02/15/20 20:00 02/15/20 20:02 Tpn Adult IV 02/16/20 19:59 48 mls/hr DAILY@2000 ROSALIO Administration Protocol As Directed Miscellaneous Medication 2.5 mg 02/15/20 14:15 Riociguat [Adempas] PO DAILY [facility] Morphine Sulfate 2 mg 02/14/20 11:32 02/15/20 01:33 Morphine IV 2 mg Q4H PRN Administration Pain, Moderate (4-6) Ondansetron HCl 4 mg 02/14/20 11:32 Zofran IV Q8H PRN Nausea And Vomiting Pantoprazole Sodium 40 mg 02/14/20 12:00 02/16/20 09:58 Protonix IV 40 mg QDAY ROSALIO Administration Sodium Chloride 10 ml 02/14/20 22:00 02/16/20 09:58 Sodium Chloride Flush Syringe 10 Ml IV 10 ml BID ROSALIO Administration Sodium Chloride 10 ml 02/14/20 11:32 Sodium Chloride Flush Syringe 10 Ml IV PRN PRN LINE FLUSH
[2020-02-16 10:56] LABS: Anisocytosis 1+; Eosinophils % (Manual) 0 % (0.0-4.3); Macrocytosis Few; Platelet Estimate Consistent w Auto; Total Cells Counted 100
--- NOTE | 2020-02-16 13:17 | Progress Note ---
Assessment and Plan 59 y/o man with hemoptysis vs hematemesis vs both on anticoagulation for PE. 1. At this time, no indication for bronchoscopy and no further documentation of hemoptysis via the chart. Suggest restarting anticoagulation and evaluate patie nt for 24 hours in house on this to see if bleeding comes back 2. Reviewed patient medication list, on Adempas which is for pulmonary htn. dO NOT KNOW of any off label uses for this drug. Will need to investigate why and who prescribed this drug 3. Renal Failure-nephrology is following 4. Hematemesis- GI is following 5. Wean oxygen therapy to off for sats >88%. Per nurses notes sat was 90% on room air. Will need ambulatory test prior to discharge Subjective Date of service: 02/16/20 Principal diagnosis: CKD and hyperkalemia Interval history: No acute events. No hemoptysis overnight. Just got back on blood thinners today. Objective Vital Signs - 12hr 02/16/20 02/16/20 02/16/20 05:20 09:57 10:00 Temperature 97.6 F Pulse Rate 76 Respiratory 18 Rate Blood Pressure 100/72 106/69 O2 Sat by Pulse 96 96 Oximetry CBC and BMP: 02/16/20 04:32 02/16/20 04:32 ABG, PT/INR, D-dimer: PT/INR, D-dimer PT 13.4 Sec. (12.2-14.9) 02/14/20 09:16 INR 1.03 (0.87-1.13) 02/14/20 09:16 D-Dimer 1076.18 ng/mlDDU (0-234) H 02/14/20 12:20 Abnormal lab findings: Abnormal Labs 02/14/20 02/14/20 02/14/20 05:36 05:36 09:16 WBC 14.2 H RBC 5.57 H Hgb 16.0 H Hct 49.0 H RDW 20.1 H Lymph % (Auto) 5.9 L [place] % (Auto) 8.8 H Lymph # (Auto) 0.8 L [place] # (Auto) 1.2 H Seg Neutrophils % 85.1 H Monocytes % (Manual) Seg Neutrophils # 12.1 H Lymphocytes # (Manual) Monocytes # (Manual) D-Dimer Sodium 132 L Potassium 6.2 H* Chloride 94.9 L Carbon Dioxide BUN 58 H Creatinine 2.2 H Glucose 163 H POC Glucose Calcium 11.0 H Ferritin Direct Bilirubin 0.5 H AST 70 H ALT 151 H Alkaline Phosphatase 268 H Lactate Dehydrogenase C-Reactive Protein Total Protein 9.2 H Albumin 3.3 L Triglycerides Urine Creatinine Urine Total Protein 02/14/20 02/14/20 02/14/20 09:16 12:20 12:20 WBC RBC Hgb Hct RDW Lymph % (Auto) [place] % (Auto) Lymph # (Auto) [place] # (Auto) Seg Neutrophils % Monocytes % (Manual) Seg Neutrophils # Lymphocytes # (Manual) Monocytes # (Manual) D-Dimer 1076.18 H Sodium 132 L Potassium 6.1 H* Chloride Carbon Dioxide BUN 56 H Creatinine 1.9 H Glucose 158 H 136 H POC Glucose Calcium 11.0 H Ferritin Direct Bilirubin AST ALT Alkaline Phosphatase Lactate Dehydrogenase 279 H C-Reactive Protein 5.30 H Total Protein Albumin Triglycerides Urine Creatinine Urine Total Protein 02/14/20 02/14/20 02/14/20 12:20 12:42 14:01 WBC RBC Hgb Hct RDW Lymph % (Auto) [place] % (Auto) Lymph # (Auto) [place] # (Auto) Seg Neutrophils % Monocytes % (Manual) Seg Neutrophils # Lymphocytes # (Manual) Monocytes # (Manual) D-Dimer Sodium 130 L Potassium 5.2 H Chloride Carbon Dioxide BUN 54 H Creatinine 1.8 H Glucose 245 H POC Glucose 231 H Calcium 10.5 H Ferritin 553.3 H Direct Bilirubin AST ALT Alkaline Phosphatase Lactate Dehydrogenase C-Reactive Protein Total Protein Albumin Triglycerides Urine Creatinine Urine Total Protein 02/14/20 02/14/20 02/15/20 Unknown Unknown 04:32 WBC 13.2 H RBC Hgb Hct RDW 20.1 H Lymph % (Auto) 5.2 L [place] % (Auto) Lymph # (Auto) 0.7 L [place] # (Auto) 0.9 H Seg Neutrophils % 87.6 H Monocytes % (Manual) Seg Neutrophils # 11.5 H Lymphocytes # (Manual) Monocytes # (Manual) D-Dimer Sodium Potassium Chloride Carbon Dioxide BUN Creatinine Glucose POC Glucose Calcium Ferritin Direct Bilirubin AST ALT Alkaline Phosphatase Lactate Dehydrogenase C-Reactive Protein Total Protein Albumin Triglycerides Urine Creatinine 39.1 H 39.6 H Urine Total Protein < 4 L 02/15/20 02/15/20 02/16/20 04:32 15:31 04:32 WBC RBC Hgb Hct RDW 20.2 H Lymph % (Auto) [place] % (Auto) Lymph # (Auto) [place] # (Auto) Seg Neutrophils % Monocytes % (Manual) 15.0 H Seg Neutrophils # Lymphocytes # (Manual) 1.1 L Monocytes # (Manual) 1.2 H D-Dimer Sodium 134 L 133 L Potassium 6.0 H Chloride 97.4 L Carbon Dioxide 20 L BUN 51 H 49 H Creatinine 1.9 H 1.8 H Glucose 202 H POC Glucose Calcium Ferritin Direct Bilirubin AST ALT Alkaline Phosphatase Lactate Dehydrogenase C-Reactive Protein Total Protein Albumin Triglycerides Urine Creatinine Urine Total Protein 02/16/20 02/16/20 04:32 04:32 WBC RBC Hgb Hct RDW Lymph % (Auto) [place] % (Auto) Lymph # (Auto) [place] # (Auto) Seg Neutrophils % Monocytes % (Manual) Seg Neutrophils # Lymphocytes # (Manual) Monocytes # (Manual) D-Dimer Sodium 135 L Potassium Chloride 95.0 L Carbon Dioxide BUN 49 H Creatinine 1.8 H Glucose 179 H POC Glucose Calcium Ferritin Direct Bilirubin AST ALT Alkaline Phosphatase Lactate Dehydrogenase C-Reactive Protein Total Protein Albumin Triglycerides 170 H Urine Creatinine Urine Total Protein
--- NOTE | 2020-02-16 14:04 | Discharge Summary ---
Providers - Providers Date of Admission: 02/14/20 08:31 Date of discharge: 02/16/20 Attending physician: MELODIE DONOVAN 02/14/20 08:11 Consult to Physician [CONS] Urgent Comment: Consulting Provider: AIDEN ZAMUDIO Physician Instructions: Reason For Exam: worsening RF hyperK 02/14/20 11:35 Consult to Dietitian/Nutrition [CONS] Routine Physician Instructions: Reason For Exam: tpn Reason for Consult: Write/Manage TPN/PPN 02/14/20 11:37 Consult to Physician [CONS] Routine Comment: Consulting Provider: ZORA BURDEN Physician Instructions: Reason For Exam: gi bleed 02/14/20 11:40 Consult to Physician [CONS] Routine Comment: Consulting Provider: HAFSA ABRAHAM Physician Instructions: Reason For Exam: pe 02/15/20 07:11 Consult to Wound/ET Nurse [CONS] Routine Reason For Exam: colostomy evaluation. 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 Scheduled repair of fistula with hernia on February 26. Presented initially with worsening symptoms of GERD nausea and subsequently developed episode of vomiting blood. This is since resolved. . Patient has not noticed any blood since 1 day. Initial work-up revealed patient to have bilateral pneumonia. Patient also had leukocytosis as well. Laboratory value patient was also found to have acute on chronic kidney disease. Patient denied any recent contact with any sick individuals any recent travel. Denied any contact with Covid. Denied any fever chills. Will admit patient treat for GERD as well as community-acquired pneumonia and high suspicion for COVID-19 pneumonia as well. Patient states he feels much better today. No more nausea and vomiting. No more shortness of breath. No hematemesis or hemoptysis. Vital signs stable no chest pain. Discharge diagnosis: --PATSY on CKD, vasomotor nephropathy - improved with fluid, baseline Cr 1.6-1.8 --GERD (gastroesophageal reflux disease), cont PPI -- Hemoptysis, likely from PNA Has resolved will restart anticoagulation. -- Hyperkalemia, resolved --HTN (hypertension) Well-controlled with current medication. --Pneumonia, bacterial nonspecific - CAP --Person under investigation for COVID-19, ruled out, negative for COVID --s/p colostomy, with colostomy bag, patient on TPN, has HH/TPN set up. outpt f/u with his GS. Disposition: [id number]/[place]-[id number] HOME UNDER [facility] Time spent for discharge: 34 minutes Core Measure Documentation - Palliative Care Palliative Care/ Comfort Measures: Not Applicable - Core Measures Any of the following diagnoses?: none Exam - Physical Exam Narrative exam: General appearance: Present: no acute distress, well-nourished - EENT Eyes: PERRL, EOM intact ENT: hearing intact, clear oral mucosa Ears: bilateral: normal - Neck Neck: supple, normal ROM - Respiratory Respiratory effort: normal Respiratory: bilateral: CTA - Breasts Breasts: normal - Cardiovascular Rhythm: regular Heart Sounds: Present: S1 & S2. Absent: gallop, rub Extremities: pulses intact, No edema, normal color, Full ROM - Gastrointestinal General gastrointestinal: Present: soft, non-tender, non-distended, normal bowel sounds, colostomy bag in place - Genitourinary Male genitourinary: normal - Integumentary Integumentary: clear, warm, dry - Musculoskeletal Musculoskeletal: 1, strength equal bilaterally - Neurologic Neurologic: moves all extremities - Psychiatric Psychiatric: memory intact, appropriate mood/affect, intact judgment & insight - Constitutional Vitals: Temp Pulse Resp BP Pulse Ox 97.6 F 76 18 106/69 96 02/16/20 05:20 02/16/20 05:20 02/16/20 05:20 02/16/20 09:57 02/16/20 10:00 Plan Activity: advance as tolerated Weight Bearing Status: Weight Bear as Tolerated Diet: other (TPN) Additional Instructions: f/u with PCP in one week Follow up with: PRIMARY CARE, [Primary Care Provider] - 3-5 Days Forms: Accompanied Note Prescriptions: Pantoprazole [Protonix] 40 mg PO QDAY #30 tablet Azithromycin [Zithromax TAB] 500 mg PO QDAY #5 tablet
--- NOTE | 2020-02-16 14:40 | Gastroenterology Progress Note ---
Assessment and Plan 1. GI: stable without GI complaints - no plans to scope ok to dc, will sign off Subjective Date of service: 02/16/20 Principal diagnosis: CKD and hyperkalemia Interval history: - no GI complaints overnight. Denies signs bleeding Objective - Constitutional Vitals: Temp Pulse Resp BP Pulse Ox 97.6 F 76 18 106/69 100 02/16/20 05:20 02/16/20 05:20 02/16/20 05:20 02/16/20 09:57 02/16/20 14:00 General appearance: no acute distress - EENT Eyes: PERRL - Respiratory Respiratory: bilateral: CTA - Cardiovascular Rhythm: regular Heart Sounds: Present: S1 & S2 - Gastrointestinal General gastrointestinal: Present: soft, non-tender, non-distended - Labs CBC & Chem 7: 02/16/20 04:32 02/16/20 04:32 Labs: Laboratory Results - last 24 hr 02/15/20 02/16/20 02/16/20 15:31 04:32 04:32 WBC 8.1 RBC 4.62 Hgb 13.5 Hct 41.1 MCV 89 MCH 29 MCHC 33 RDW 20.2 H Plt Count 206 [place] % (Auto) Rat Culturist Add Manual Diff Complete Total Counted 100 Seg Neuts % (Manual) 70.0 Band Neutrophils % 0 Lymphocytes % (Manual) 14.0 Reactive Lymphs % (Man) 0 Monocytes % (Manual) 15.0 H Eosinophils % (Manual) 0 Basophils % (Manual) 1.0 Metamyelocytes % 0 Myelocytes % 0 Promyelocytes % 0 Blast Cells % 0 Nucleated RBC % Not Reportable Seg Neutrophils # Man 5.7 Band Neutrophils # 0.0 Lymphocytes # (Manual) 1.1 L Abs React Lymphs (Man) 0.0 Monocytes # (Manual) 1.2 H Eosinophils # (Manual) 0.0 Basophils # (Manual) 0.1 Metamyelocytes # 0.0 Myelocytes # 0.0 Promyelocytes # 0.0 Blast Cells # 0.0 WBC Morphology Not Reportable Hypersegmented Neuts Not Reportable Hyposegmented Neuts Not Reportable Hypogranular Neuts Not Reportable Smudge Cells Not Reportable Toxic Granulation Not Reportable Toxic Vacuolation Not Reportable Dohle Bodies Not Reportable Pelger-Huet Anomaly Not Reportable Cydney Rods Not Reportable Platelet Estimate Consistent w auto Clumped Platelets Not Reportable Plt Clumps, EDTA Not Reportable Large Platelets Not Reportable Giant Platelets Not Reportable Platelet Satelliting Not Reportable Plt Morphology Comment Not Reportable RBC Morphology Not Reportable Dimorphic RBCs Not Reportable Polychromasia Not Reportable Hypochromasia Not Reportable Poikilocytosis Not Reportable Anisocytosis 1+ Microcytosis Not Reportable Macrocytosis Few Spherocytes Not Reportable Pappenheimer Bodies Not Reportable Sickle Cells Not Reportable Target Cells Not Reportable Tear Drop Cells Not Reportable Ovalocytes Not Reportable Helmet Cells Not Reportable [place] Bodies Not Reportable [place] Rings Not Reportable [place] Cells Not Reportable Bite Cells Not Reportable Crenated Cell Not Reportable Elliptocytes Not Reportable Acanthocytes (Spur) Not Reportable Rouleaux Not Reportable Hemoglobin C Crystals Not Reportable Schistocytes Not Reportable Malaria parasites Not Reportable Min Bodies Not Reportable Hem Pathologist Commnt No Sodium 133 L 135 L Potassium 4.9 3.9 D Chloride 97.4 L 95.0 L Carbon Dioxide 25 27 Anion Gap 16 17 BUN 49 H 49 H Creatinine 1.8 H 1.8 H Estimated GFR 47 47 BUN/Creatinine Ratio 27 27 Glucose 202 H 179 H Calcium 9.2 9.1 Magnesium Triglycerides 02/16/20 04:32 WBC RBC Hgb Hct MCV MCH MCHC RDW Plt Count [place] % (Auto) Add Manual Diff Total Counted Seg Neuts % (Manual) Band Neutrophils % Lymphocytes % (Manual) Reactive Lymphs % (Man) Monocytes % (Manual) Eosinophils % (Manual) Basophils % (Manual) Metamyelocytes % Myelocytes % Promyelocytes % Blast Cells % Nucleated RBC % Seg Neutrophils # Man Band Neutrophils # Lymphocytes # (Manual) Abs React Lymphs (Man) Monocytes # (Manual) Eosinophils # (Manual) Basophils # (Manual) Metamyelocytes # Myelocytes # Promyelocytes # Blast Cells # WBC Morphology Hypersegmented Neuts Hyposegmented Neuts Hypogranular Neuts Smudge Cells Toxic Granulation Toxic Vacuolation Dohle Bodies Pelger-Huet Anomaly [place]yd[place] Rods Platelet Estimate Clumped Platelets Plt Clumps, EDTA Large Platelets Giant Platelets Platelet Satelliting Plt Morphology Comment RBC Morphology Dimorphic RBCs Polychromasia Hypochromasia Poikilocytosis Anisocytosis Microcytosis Macrocytosis Spherocytes Pappenheimer Bodies Sickle Cells Target Cells Tear Drop Cells Ovalocytes Helmet Cells [place] Bodies [place] Rings [place] Cells Bite Cells Crenated Cell Elliptocytes Acanthocytes (Spur) Rouleaux Hemoglobin C Crystals Schistocytes Malaria parasites Min Bodies Hem Pathologist Commnt Sodium Potassium Chloride Carbon Dioxide Anion Gap BUN Creatinine Estimated GFR BUN/Creatinine Ratio Glucose Calcium Magnesium 2.10 Triglycerides 170 H
[2020-02-16 18:45] VITALS: BP 109/81
[2020-02-16] MEDS ORDERED: FAT EMULSIONS 20% 250 ML IV SCH (20:00)
[2020-02-16] MEDS ORDERED: TOTAL PARENTERAL NUTRITION 2,016 ML IV SCH (20:00)
[2020-02-16] MEDS ORDERED: APIXABAN 5 MG TAB PO SCH (22:00)
[2020-02-17] MEDS ORDERED: AZITHROMYCIN 250 MG TAB PO SCH (10:00)
[2020-02-17] MEDS ORDERED: cefTRIAXone/NS 2 GM/100 ML 2 GM/100 ML BAG IV SCH (10:00)
== END 2020-02-16 15:30 | disposition home health service (06) | DRG 682 ==
LOC: ED 02:11 → 3A 08:31
PROVIDERS: ADMIT Internal Medicine; ATTEND Internal Medicine
DX: N17.0 Acute kidney failure with tubular necrosis (principal); J18.9 Pneumonia, unspecified organism; A41.9 Sepsis, unspecified organism; Z20.828 Contact with and (suspected) exposure to other viral communicable diseases; E87.5 Hyperkalemia; N18.30 Chronic kidney disease, stage 3 unspecified; Z86.711 Personal history of pulmonary embolism; Z79.01 Long term (current) use of anticoagulants; K21.9 Gastro-esophageal reflux disease without esophagitis; Z93.3 Colostomy status; I12.9 Hypertensive chronic kidney disease with stage 1 through stage 4 chronic kidney disease, or unspecified chronic kidney disease; E11.22 Type 2 diabetes mellitus with diabetic chronic kidney disease; I25.10 Atherosclerotic heart disease of native coronary artery without angina pectoris; Z86.718 Personal history of other venous thrombosis and embolism; Z95.818 Presence of other cardiac implants and grafts; Z79.899 Other long term (current) drug therapy; Z88.8 Allergy status to other drugs, medicaments and biological substances
CPT/HCPCS: 36415; 71046; 71250; 74176; 78580; 80048; 80076; 81001; 82570; 82728; 82947; 82962; 83615; 83735; 83880; 84100; 84145; 84156; 84300; 84478; 85007; 85025; 85379; 85610; 85730; 86140; 86850; 86900; 86901; 87116; 93005; 96365; 96367; 96368; 96375; 96376; G0378; A9540; C9113; J0610; J0696; J1815; J1940; J2270; J2405; J2543; J7030; J7070; U0003